=== PATIENT | male | born 1955 | race African-American/Black ===

== ENCOUNTER → 2016-10-23 | Outpatient (CLI) | payer BC ==
[2016-10-25 10:19] LABS: PROSTATE SPECIFIC ANTIGEN 1.6 ng/mL (0.0-4.0); PSA % FREE 13.8 % (.); PSA FREE 0.22 ng/mL
== END ==
LOC: OD 16:56
PROVIDERS: ATTEND Urology
DX: N40.1 Benign prostatic hyperplasia with lower urinary tract symptoms (principal); K27.9 Peptic ulcer, site unspecified, unspecified as acute or chronic, without hemorrhage or perforation
CPT/HCPCS: 36415; 84154

== ENCOUNTER 2017-01-06 11:53 | Emergency (ER) | payer OTHER, BC ==
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
[2017-01-06] MEDS ORDERED: IBUPROFEN 800 MG TABLET PO ONE (12:41)
[2017-01-06 14:13] VITALS: BP 140/82
== END 2017-01-06 14:07 | disposition home or self-care (01) ==
LOC: ER 11:53
DX: S13.4XXA Sprain of ligaments of cervical spine, initial encounter (principal); S29.019A Strain of muscle and tendon of unspecified wall of thorax, initial encounter; M54.9 Dorsalgia, unspecified; M54.2 Cervicalgia; V87.7XXA Person injured in collision between other specified motor vehicles (traffic), initial encounter
CPT/HCPCS: 71020; 72050; 72070; 99284

== ENCOUNTER → 2017-06-29 | Outpatient (CLI) | payer BC ==
[2017-06-29 16:12] LABS: ABSOLUTE LYMPHOCYTES (AUTO) 1.1 10^3/uL (0.5-4.7); ABSOLUTE MONOCYTES (AUTO) 0.6 10^3/uL (0.1-1.4); ABSOLUTE NEUT (AUTO) 4.6 10^3/uL (1.7-8.2); BASOPHILS % (AUTO) 0.3 % (0-2); EOSINOPHILS % (AUTO) 0.7 % (0-6); HEMATOCRIT 38.6 % (37.9-51.0); HEMOGLOBIN 13.1 g/dL (13.5-17.0); HGB HCT DIFFERENCE 0.7; LYMPHOCYTES % (AUTO) 17.5 % (13-45); MEAN CORPUSCULAR HEMOGLOBIN 27.9 pg (27.0-33.4); MEAN CORPUSCULAR VOLUME 82 fl (80-97); MONOCYTES % (AUTO) 10.1 % (3-13); RED BLOOD COUNT 4.71 10^6/uL (4.35-5.55); RED CELL DISTRIBUTION WIDTH 12.9 % (11.5-14.0); SEGMENTED NEUTROPHILS % (AUTO) 71.4 % (42-78); WHITE BLOOD COUNT 6.4 10^3/uL (4.0-10.5)
[2017-06-29 16:43] LABS: ALANINE AMINOTRANSFERASE 32 U/L (21-72); ALBUMIN 3.9 g/dL (3.5-5.0); ALKALINE PHOSPHATASE 77 U/L (38-126); ANION GAP 11 (5-19); ASPARTATE AMINO TRANSFERASE 32 U/L (17-59); BILIRUBIN,DIRECT 0.3 mg/dL (0.0-0.4); BILIRUBIN,TOTAL 0.7 mg/dL (0.2-1.3); BLOOD UREA NITROGEN 10 mg/dL (7-20); CALCIUM 9.8 mg/dL (8.4-10.2); CARBON DIOXIDE 26 mmol/L (22-30); CHLORIDE 104 mmol/L (98-107); CREATININE RESULT 0.96 mg/dL (0.52-1.25); GLUCOSE 147 mg/dL (75-110); POTASSIUM 3.6 mmol/L (3.6-5.0); SODIUM 141.3 mmol/L (137-145); TOTAL PROTEIN 7.2 g/dL (6.3-8.2)
== END ==
LOC: OD 15:36
PROVIDERS: ATTEND Internal Medicine Critical Care Medicine
DX: D86.0 Sarcoidosis of lung (principal); R59.0 Localized enlarged lymph nodes; R91.1 Solitary pulmonary nodule; R91.8 Other nonspecific abnormal finding of lung field; R06.09 Other forms of dyspnea
CPT/HCPCS: 36415; 80053; 85025

== ENCOUNTER → 2017-09-17 | Outpatient (CLI) | payer BC ==
[2017-09-17 12:06] LABS: ABSOLUTE BASOPHILS # (AUTO) 0.1 10^3/uL (0.0-0.2); ABSOLUTE EOSINOPHILS # (AUTO) 0.8 10^3/uL (0.0-0.6); ABSOLUTE LYMPHOCYTES (AUTO) 1.2 10^3/uL (0.5-4.7); ABSOLUTE MONOCYTES (AUTO) 0.9 10^3/uL (0.1-1.4); ABSOLUTE NEUT (AUTO) 3.3 10^3/uL (1.7-8.2); BASOPHILS % (AUTO) 0.8 % (0-2); EOSINOPHILS % (AUTO) 13.4 % (0-6); HEMATOCRIT 38.3 % (37.9-51.0); HEMOGLOBIN 12.8 g/dL (13.5-17.0); HGB HCT DIFFERENCE 0.1; LYMPHOCYTES % (AUTO) 19.1 % (13-45); MEAN CORPUSCULAR HEMOGLOBIN 28.1 pg (27.0-33.4); MEAN CORPUSCULAR HGB CONC 33.4 g/dL (32.0-36.0); MEAN CORPUSCULAR VOLUME 84 fl (80-97); MONOCYTES % (AUTO) 14.7 % (3-13); RED BLOOD COUNT 4.55 10^6/uL (4.35-5.55); RED CELL DISTRIBUTION WIDTH 13.2 % (11.5-14.0); WHITE BLOOD COUNT 6.3 10^3/uL (4.0-10.5)
[2017-09-17 12:33] LABS: ALANINE AMINOTRANSFERASE 47 U/L (21-72); ALBUMIN 3.8 g/dL (3.5-5.0); ALKALINE PHOSPHATASE 81 U/L (38-126); ANION GAP 11 (5-19); ASPARTATE AMINO TRANSFERASE 41 U/L (17-59); BILIRUBIN,DIRECT 0.2 mg/dL (0.0-0.4); BILIRUBIN,TOTAL 0.5 mg/dL (0.2-1.3); BLOOD UREA NITROGEN 7 mg/dL (7-20); CALCIUM 9.2 mg/dL (8.4-10.2); CARBON DIOXIDE 31 mmol/L (22-30); CHLORIDE 101 mmol/L (98-107); GLUCOSE 85 mg/dL (75-110); POTASSIUM 4.1 mmol/L (3.6-5.0); SODIUM 143.1 mmol/L (137-145); TOTAL PROTEIN 6.8 g/dL (6.3-8.2)
== END ==
LOC: OD 10:54
PROVIDERS: ATTEND Internal Medicine Critical Care Medicine
DX: R91.8 Other nonspecific abnormal finding of lung field (principal); R91.1 Solitary pulmonary nodule; J45.909 Unspecified asthma, uncomplicated; D86.0 Sarcoidosis of lung; J45.901 Unspecified asthma with (acute) exacerbation; R59.9 Enlarged lymph nodes, unspecified; R06.09 Other forms of dyspnea
CPT/HCPCS: 36415; 80053; 85025

== ENCOUNTER 2017-10-29 03:55 | Emergency (ER) | payer BC ==
[2017-10-29] MEDS ORDERED: IPRATROPIUM/ALBUTEROL 0.5-2.5 MG/3 ML AMPUL NEB ONE ×3 (04:28→06:58)
[2017-10-29] MEDS ORDERED: METHYLPREDNISOLONE INJ 125 MG/2 ML SDV IV ONE (04:44)
--- NOTE | 2017-10-29 04:48 | ER Document Report ---
Doctor's Note Notes: 10/29/17 04:46 I performed a quick triage evaluation of the patient. Mr. Mejia is a pleasant 62-year-old male with a history of sarcoidosis who presents with complaint of difficulty breathing and coughing. 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 He said he has had coughing since September 14. He has been on and off prednisone. He is currently on 10 mg of prednisone a day. He was recently placed on Levaquin. Since starting Levaquin he is felt nauseous and has been vomiting. No fevers. His breathing is gradually got worse now he has a lot of wheezing. He does not use breathing treatments at home. No other complaints at this time. On exam he does have diffuse wheezing and tightness in the lung gonzalez. He is not tachypneic. He is speaking in full sentences. Start breathing treatments as well as Solu-Medrol magnesium. I will obtain chest x-ray. Labs have been ordered.
[2017-10-29] MEDS: MAGNESIUM SULFATE/D5W 1 GM/100 ML RTUPB IV SCH ×2 (04:58→05:16)
--- NOTE | 2017-10-29 05:06 | RADIOLOGY REPORT (SQ) ---
EXAM DESCRIPTION: CHEST SINGLE VIEW CLINICAL HISTORY: History of sarcoidosis. COMPARISON: 01/06/2017 FINDINGS: Single frontal view of the chest. Tortuosity of thoracic aorta. Cardiac megaly. Leads overlie the chest. Upper lobe and perihilar opacities are unchanged. No pneumothorax or pleural effusion. No lobar consolidation, pneumothorax, or pleural effusion. No displaced rib fractures identified. Upper abdominal soft tissues are unremarkable. IMPRESSION: 1. Stable appearance of the chest with unchanged upper lobe and perihilar opacities likely representing adenopathy related to sarcoidosis. No acute pulmonary process.
[2017-10-29 05:18] LABS: ABSOLUTE EOSINOPHILS # (AUTO) 0.7 10^3/uL (0.0-0.6); ABSOLUTE LYMPHOCYTES (AUTO) 1.9 10^3/uL (0.5-4.7); ABSOLUTE MONOCYTES (AUTO) 0.8 10^3/uL (0.1-1.4); ABSOLUTE NEUT (AUTO) 3.4 10^3/uL (1.7-8.2); BASOPHILS % (AUTO) 0.7 % (0-2); EOSINOPHILS % (AUTO) 9.9 % (0-6); HEMOGLOBIN 12.5 g/dL (13.5-17.0); LYMPHOCYTES % (AUTO) 27.9 % (13-45); MEAN CORPUSCULAR HEMOGLOBIN 28.2 pg (27.0-33.4); MEAN CORPUSCULAR VOLUME 85 fl (80-97); MONOCYTES % (AUTO) 12.1 % (3-13); PLATELET COUNT 226 10^3/uL (150-450); RED BLOOD COUNT 4.45 10^6/uL (4.35-5.55); RED CELL DISTRIBUTION WIDTH 13.2 % (11.5-14.0); SEGMENTED NEUTROPHILS % (AUTO) 49.4 % (42-78); TOTAL CELLS COUNTED % (AUTO) 100 %; WHITE BLOOD COUNT 6.9 10^3/uL (4.0-10.5)
[2017-10-29 05:47] LABS: ALANINE AMINOTRANSFERASE 23 U/L (21-72); ALBUMIN 3.8 g/dL (3.5-5.0); ALKALINE PHOSPHATASE 66 U/L (38-126); ANION GAP 10 (5-19); ASPARTATE AMINO TRANSFERASE 20 U/L (17-59); BILIRUBIN,DIRECT 0.2 mg/dL (0.0-0.4); BILIRUBIN,TOTAL 0.2 mg/dL (0.2-1.3); BLOOD UREA NITROGEN 13 mg/dL (7-20); CARBON DIOXIDE 33 mmol/L (22-30); CHLORIDE 103 mmol/L (98-107); GLUCOSE 101 mg/dL (75-110); POTASSIUM 3.7 mmol/L (3.6-5.0); SODIUM 145.6 mmol/L (137-145); TOTAL PROTEIN 6.7 g/dL (6.3-8.2)
[2017-10-29 07:10] VITALS: BP 149/93
--- NOTE | 2017-10-29 07:11 | ER Document Report ---
ED General - General Chief Complaint: Shortness Of Breath Stated Complaint: VOMITING,WHEEZING Time Seen by Provider: 10/29/17 04:44 Mode of Arrival: Ambulatory Information source: Patient Notes: 62-year-old male history of sarcoidosis presents with complaints of wheezing shortness of breath. Patient notes that he has been wheezing for a while but it has worsened over the past week or so. He denies any productivity to cough denies any fevers or chills. Patient is on 10 mg of steroids daily. Patient is on levofloxacin from his host coordinator as well. TRAVEL OUTSIDE OF THE [place] IN LAST 30 DAYS: No - HPI Onset: Last week Onset/Duration: Worse Quality of pain: No pain Severity: Mild Pain Level: Denies Associated symptoms: Shortness of breath Exacerbated by: Coughing Relieved by: Denies Similar symptoms previously: Yes Recently seen / treated by doctor: Yes - Related Data Allergies/Adverse Reactions: No Known Allergies Allergy (Verified 10/29/17 04:36) Past Medical History - Social History Smoking Status: Never Smoker Cigarette use (# per day): No Chew tobacco use (# tins/day): No Smoking Education Provided: No Frequency of alcohol use: Occasional Drug Abuse: None Family History: Reviewed & Not Pertinent Patient has suicidal ideation: No Patient has homicidal ideation: No Renal/ Medical History: Denies: Hx Peritoneal Dialysis Review of Systems - Review of Systems Notes: REVIEW OF SYSTEMS: CONSTITUTIONAL : Denies fever, chills, or sweats. Denies recent illness. EENT: Denies eye, ear, throat, or mouth pain or symptoms. Denies nasal or sinus congestion or discharge. Denies throat, tongue, or mouth swelling or difficulty swallowing. CARDIOVASCULAR: Denies chest pain. Denies palpitations or racing or irregular heart beat. Denies ankle edema. RESPIRATORY: Admits to wheezing shortness of breath GASTROINTESTINAL: Denies abdominal pain or distention. Denies nausea, vomiting , or diarrhea. Denies blood in vomitus, stools, or per rectum. Denies black, tarry stools. Denies constipation. GENITOURINARY: Denies difficulty urinating, painful urination, burning, frequency, blood in urine, or discharge. MUSCULOSKELETAL: Denies back or neck pain or stiffness. Denies joint pain or swelling. SKIN: Denies rash, lesions or sores. HEMATOLOGIC : Denies easy bruising or bleeding. LYMPHATIC: Denies swollen, enlarged glands. NEUROLOGICAL: Denies confusion or altered mental status. Denies passing out or loss of consciousness. Denies dizziness or lightheadedness. Denies headache. Denies weakness or paralysis or loss of use of either side. Denies problems with gait or speech. Denies sensory loss, numbness, or tingling. Denies seizures. PSYCHIATRIC: Denies anxiety or stress. Denies depression, suicidal ideation, or homicidal ideation. ALL OTHER SYSTEMS REVIEWED AND NEGATIVE. Dictation was performed using [employer] voice recognition software PHYSICAL EXAMINATION: GENERAL: Well-appearing, well-nourished and in no acute distress. HEAD: Atraumatic, normocephalic. EYES: Pupils equal round and reactive to light, extraocular movements intact, sclera anicteric, conjunctiva are normal. ENT: Nares patent, oropharynx clear without exudates. Moist mucous membranes. NECK: Normal range of motion, supple without lymphadenopathy LUNGS: Coarse inspiratory expiratory wheezing with no respiratory distress noted to have improved by nurse prior to my evaluation HEART: Regular rate and rhythm without murmurs ABDOMEN: Soft, nontender, nondistended abdomen. No guarding, no rebound. No masses appreciated. Musculoskeletal: Normal range of motion, no pitting or edema. No cyanosis. NEUROLOGICAL: Cranial nerves grossly intact. Normal speech, normal gait. Normal sensory, motor exams PSYCH: Normal mood, normal affect. SKIN: Warm, Dry, normal turgor, no rashes or lesions noted. Physical Exam - Vital signs Vitals: Pulse Ox 93 10/29/17 04:18 Course - Re-evaluation Re-evalutation: 10/29/17 07:09 Patient already received 2 DuoNeb states he feels much better, he is satting 97 % on room air, I will add another DuoNeb and increase his steroids from 10 mg to 60 mg 5 days. Patient been instructed to follow-up with the host coordinator. Patient will be discharged home with nebulizer prescription and albuterol at his request Lab work imaging otherwise are quite benign patient looks well stable for discharge After performing a Medical Screening Examination, I estimate there is LOW risk for ACUTE CORONARY SYNDROME, PULMONARY EMBOLI, RESPIRATORY FAILURE, SEPSIS OR MENINGITIS, thus I consider the discharge disposition reasonable. I have reevaluated this patient multiple times and no significant life threatening changes are noted. The patient and I have discussed the diagnosis and risks, and we agree with discharging home with close follow-up. We also discussed returning to the Emergency Department immediately if new or worsening symptoms occur. We have discussed the symptoms which are most concerning (e.g., changing or worsening pain, trouble swallowing or breathing, neck stiffness, fever) that necessitate immediate return. - Vital Signs Vital signs: Temp Pulse Resp BP Pulse Ox 14 141/82 H 95 10/29/17 06:01 10/29/17 06:01 10/29/17 06:01 - Laboratory Result Diagrams: 10/29/17 05:00 10/29/17 05:00 Laboratory results interpreted by me: 10/29/17 10/29/17 05:00 05:00 Hgb 12.5 L Eosinophils % 9.9 H Absolute Eosinophils 0.7 H Sodium 145.6 H Carbon Dioxide 33 H - Diagnostic Test Radiology reviewed: Image reviewed, Reports reviewed Discharge - Discharge Clinical Impression: Sarcoidosis Condition: Stable Disposition: HOME, SELF-CARE Instructions: Bronchitis With Bronchospasm (Wheezing) (REPLACED BY [facility]) Prescriptions: Albuterol Sulfate [Albuterol Sulfate 2.5mg/3 mL] 1 vial IH Q4 PRN #30 vial PRN Reason: Nebulizer [Nebulizer Machine] 1 each MC ASDIR PRN #1 kit PRN Reason: Prednisone [Deltasone 20 mg Tablet] 3 tab PO DAILY 4 Days tablet Referrals: LE SALINAS MD [Primary Care Provider] - Follow up tomorrow
== END 2017-10-29 07:36 | disposition home or self-care (01) ==
LOC: ER 03:55
DX: D86.9 Sarcoidosis, unspecified (principal); R06.02 Shortness of breath; R11.10 Vomiting, unspecified; R06.2 Wheezing; Z79.899 Other long term (current) drug therapy
CPT/HCPCS: 94640 ×2; 99285; 96375; 96365; 36415; 85025; 80053; 71045; J2930; J3475; J7620

== ENCOUNTER → 2018-01-20 | Outpatient (CLI) | payer BC ==
--- NOTE | 2018-01-20 16:34 | RADIOLOGY REPORT (SQ) ---
EXAM DESCRIPTION: CT CHEST WITHOUT COMPLETED DATE/TIME: 01/20/2018 2:38 pm REASON FOR STUDY: PULMONARY INFILTRATE R91.8 OTHER NONSPECIFIC ABNORMAL FINDING OF LUNG FIELD R91.1 SOLITARY PULMONARY NODULE R59.9 ENLARGED LYMPH NODES, UNSPECIFIED COMPARISON: Chest x-ray dated October [address] scan dated April 2014 TECHNIQUE: CT scan performed of the chest without intravenous contrast. Images reviewed with lung, soft tissue and bone windows. Reconstructed coronal and sagittal MPR images reviewed. All images st ored on PACS. All CT scanners at this facility use dose modulation, iterative reconstruction, and/or weight based d osing when appropriate to reduce radiation dose to as low as reasonably achievable (ALARA). [facility]: Dose Right [facility]: CareDose [facility]: Dose Right [facility]: Teradose 4D [facility]: Smart myJambi RADIATION DOSE: CT Rad equipment meets quality standard of care and radiation dose reduction techniq ues were employed. CTDIvol: 12.4 mGy. DLP: 515 mGy-cm. mGy. LIMITATIONS: No technical limitations. FINDINGS: LUNGS AND PLEURA: The previously described varying size multiple nodular pulmonary masses some of which contains calcifications are again identified and appear essentially unchanged no acute consolidations or pleural effusions are identified. HILAR AND MEDIASTINAL STRUCTURES: The previously described extensive mediastinal and hilar calcific a nd noncalcific adenopathy a appears stable. HEART AND VASCULAR STRUCTURES: No aneurysm. No pericardial effusion. UPPER ABDOMEN: No significant findings. Limited exam. THYROID AND OTHER SOFT TISSUES: No masses. No adenopathy. BONES: No significant finding. HARDWARE: None in the chest. OTHER: No other significant findings. IMPRESSION: No significant interval changes compared to the previous CT scan. Extensive mediastinal and hilar calcific and noncalcific adenopathy appears stable. The previously described varying size multiple nodular or pulmonary masses some of which contains calcifications appears stable. The appe arance is consistent with the patient's clinical history of sarcoidosis. No acute changes. Other fi ndings as noted above TECHNICAL DOCUMENTATION: JOB ID: [id number] Quality ID # [id number]: Final reports with documentation of one or more dose reduction techniques (e.g., Au tomated exposure control, adjustment of the mA and/or kV according to patient size, use of iterative reconstruction technique) 2010 [employer]- All Rights Reserved Reading location - IP/workstation name: [email or web address]
== END ==
LOC: RAD 14:17
PROVIDERS: ATTEND Internal Medicine Critical Care Medicine
DX: D86.0 Sarcoidosis of lung (principal); R59.9 Enlarged lymph nodes, unspecified; R91.8 Other nonspecific abnormal finding of lung field; R91.1 Solitary pulmonary nodule; R06.09 Other forms of dyspnea; R06.89 Other abnormalities of breathing; J45.901 Unspecified asthma with (acute) exacerbation
CPT/HCPCS: 71250

== ENCOUNTER 2018-04-09 18:56 | Inpatient (IN) | payer BC ==
[2018-04-09] MEDS ORDERED: METHYLPREDNISOLONE INJ 125 MG/2 ML SDV IV ONE (19:35)
[2018-04-09] MEDS ORDERED: IPRATROPIUM/ALBUTEROL 0.5-2.5 MG/3 ML AMPUL NEB ONE (19:35)
--- NOTE | 2018-04-09 19:48 | ER Document Report ---
ED General - General Chief Complaint: Breathing Difficulty Stated Complaint: TROUBLE BREATHING Time Seen by Provider: 04/09/18 19:22 Mode of Arrival: Ambulatory Information source: Patient Notes: 62-year-old male presents with complaints of shortness of breath wheezing over the past few months has worsened today. Patient denies any fevers or chills admits to intermittent productive cough. Patient notes he has been given breathing treatments at home TRAVEL OUTSIDE OF THE [place] IN LAST 30 DAYS: No - HPI Onset: Other Onset/Duration: Persistent Quality of pain: Achy Severity: Moderate Pain Level: 1 Associated symptoms: Nonproductive cough, Productive cough, Shortness of breath Exacerbated by: Movement, Walking Relieved by: Denies Similar symptoms previously: Yes Recently seen / treated by doctor: Yes - Related Data Allergies/Adverse Reactions: No Known Allergies Allergy (Verified 10/29/17 04:36) Past Medical History - Social History Smoking Status: Never Smoker Cigarette use (# per day): No Chew tobacco use (# tins/day): No Smoking Education Provided: No Family History: Reviewed & Not Pertinent Renal/ Medical History: Denies: Hx Peritoneal Dialysis Review of Systems - Review of Systems Notes: REVIEW OF SYSTEMS: CONSTITUTIONAL : Denies fever, chills, or sweats. Denies recent illness. EENT: Denies eye, ear, throat, or mouth pain or symptoms. Denies nasal or sinus congestion or discharge. Denies throat, tongue, or mouth swelling or difficulty swallowing. CARDIOVASCULAR: Denies chest pain. Denies palpitations or racing or irregular heart beat. Denies ankle edema. RESPIRATORY: Admits to wheezing shortness of breath GASTROINTESTINAL: Denies abdominal pain or distention. Denies nausea, vomiting , or diarrhea. Denies blood in vomitus, stools, or per rectum. Denies black, tarry stools. Denies constipation. GENITOURINARY: Denies difficulty urinating, painful urination, burning, frequency, blood in urine, or discharge. MUSCULOSKELETAL: Denies back or neck pain or stiffness. Denies joint pain or swelling. SKIN: Denies rash, lesions or sores. HEMATOLOGIC : Denies easy bruising or bleeding. LYMPHATIC: Denies swollen, enlarged glands. NEUROLOGICAL: Denies confusion or altered mental status. Denies passing out or loss of consciousness. Denies dizziness or lightheadedness. Denies headache. Denies weakness or paralysis or loss of use of either side. Denies problems with gait or speech. Denies sensory loss, numbness, or tingling. Denies seizures. PSYCHIATRIC: Denies anxiety or stress. Denies depression, suicidal ideation, or homicidal ideation. ALL OTHER SYSTEMS REVIEWED AND NEGATIVE. Dictation was performed using [employer] voice recognition software PHYSICAL EXAMINATION: GENERAL: Well-appearing, well-nourished and in moderate respiratory acute distress. HEAD: Atraumatic, normocephalic. EYES: Pupils equal round and reactive to light, extraocular movements intact, sclera anicteric, conjunctiva are normal. ENT: Nares patent, oropharynx clear without exudates. Moist mucous membranes. NECK: Normal range of motion, supple without lymphadenopathy LUNGS: Audible inspiratory respiratory wheezing all throughout with intercostal supraclavicular retractions HEART: Regular rate and rhythm without murmurs ABDOMEN: Soft, nontender, nondistended abdomen. No guarding, no rebound. No masses appreciated. Musculoskeletal: Normal range of motion, no pitting or edema. No cyanosis. NEUROLOGICAL: Cranial nerves grossly intact. Normal speech, normal gait. Normal sensory, motor exams PSYCH: Normal mood, normal affect. SKIN: Warm, Dry, normal turgor, no rashes or lesions noted. Physical Exam - Vital signs Vitals: Pulse Ox 99 04/09/18 19:50 Course - Re-evaluation Re-evalutation: 04/09/18 19:48 Patient will be given multiple breathing treatments dyspnea workup pending 04/09/18 21:51 After 3 duo nebs patient will be ambulated to determine his exertional dyspnea 04/09/18 22:28 Patient was ambulated immediately desatted to 83%, I will admit him to the hospitalist service preparer is Dr. pineda - Vital Signs Vital signs: Temp Pulse Resp BP Pulse Ox 99 04/09/18 19:50 - Laboratory Result Diagrams: 04/09/18 19:44 04/09/18 19:44 Laboratory results interpreted by me: 04/09/18 04/09/18 04/09/18 19:44 19:44 23:03 Hgb 12.9 L Eosinophils % 11.9 H Absolute Eosinophils 1.0 H VBG pCO2 68.6 H* VBG HCO3 34.6 H Carbon Dioxide 33 H Discharge - Discharge Clinical Impression: Sarcoidosis, Hypoxemia Condition: Fair Disposition: ADMITTED INPATIENT Admitting Provider: Hospitalist Unit Admitted: Telemetry
[2018-04-09] MEDS ORDERED: IBUPROFEN 800 MG TABLET PO ONE (20:07)
[2018-04-09 20:13] LABS: ABSOLUTE BASOPHILS # (AUTO) 0.1 10^3/uL (0.0-0.2); ABSOLUTE LYMPHOCYTES (AUTO) 1.5 10^3/uL (0.5-4.7); ABSOLUTE MONOCYTES (AUTO) 0.9 10^3/uL (0.1-1.4); BASOPHILS % (AUTO) 0.7 % (0-2); EOSINOPHILS % (AUTO) 11.9 % (0-6); HEMATOCRIT 38.6 % (37.9-51.0); HEMOGLOBIN 12.9 g/dL (13.5-17.0); LYMPHOCYTES % (AUTO) 17.9 % (13-45); MEAN CORPUSCULAR HGB CONC 33.3 g/dL (32.0-36.0); MEAN CORPUSCULAR VOLUME 84 fl (80-97); PLATELET COUNT 202 10^3/uL (150-450); RED BLOOD COUNT 4.59 10^6/uL (4.35-5.55); RED CELL DISTRIBUTION WIDTH 13.3 % (11.5-14.0); SEGMENTED NEUTROPHILS % (AUTO) 58.5 % (42-78); TOTAL CELLS COUNTED % (AUTO) 100 %; WHITE BLOOD COUNT 8.5 10^3/uL (4.0-10.5)
[2018-04-09 20:30] LABS: ALANINE AMINOTRANSFERASE 31 U/L (21-72); ALBUMIN 3.9 g/dL (3.5-5.0); ALKALINE PHOSPHATASE 82 U/L (38-126); ANION GAP 8 (5-19); ASPARTATE AMINO TRANSFERASE 30 U/L (17-59); BILIRUBIN,DIRECT 0.3 mg/dL (0.0-0.4); BILIRUBIN,TOTAL 0.5 mg/dL (0.2-1.3); BLOOD UREA NITROGEN 10 mg/dL (7-20); CALCIUM 9.3 mg/dL (8.4-10.2); CARBON DIOXIDE 33 mmol/L (22-30); CHLORIDE 103 mmol/L (98-107); CREATINE KINASE 141 U/L (55-170); GLUCOSE 92 mg/dL (75-110); POTASSIUM 3.9 mmol/L (3.6-5.0); SODIUM 144.1 mmol/L (137-145); TOTAL PROTEIN 7.4 g/dL (6.3-8.2)
[2018-04-09 20:42] LABS: NT PRO BNP 46 pg/mL (5-900)
[2018-04-09 20:44] LABS: TROPONIN I < 0.012 ng/mL
--- NOTE | 2018-04-09 20:47 | RADIOLOGY REPORT (SQ) ---
EXAM DESCRIPTION: CHEST SINGLE VIEW COMPLETED DATE/TIME: 04/09/2018 8:28 pm REASON FOR STUDY: dyspnea COMPARISON: 10/29/2017 EXAM PARAMETERS: NUMBER OF VIEWS: One view. TECHNIQUE: Single frontal radiographic view of the chest acquired. RADIATION DOSE: NA LIMITATIONS: None. FINDINGS: LUNGS AND PLEURA: No acute opacities, similar parahilar and upper lobe opacities. No pneu mothorax. No pleural effusion. MEDIASTINUM AND HILAR STRUCTURES: Stable. HEART AND VASCULAR STRUCTURES: Stable. BONES: No acute findings. HARDWARE: None in the chest. OTHER: No other significant finding. IMPRESSION: Stable radiograph compared with October 2017. TECHNICAL DOCUMENTATION: JOB ID: [id number] [place]-72 2010 [employer]- All Rights Reserved Reading location - IP/workstation name: [email or web address]
[2018-04-09] MEDS ORDERED: ACETAMINOPHEN 325 MG TABLET PO PRN (22:41)
[2018-04-09] MEDS ORDERED: IPRATROPIUM/ALBUTEROL 0.5-2.5 MG/3 ML AMPUL NEB PRN (22:41)
[2018-04-09] MEDS ORDERED: GUAIFENESIN SYRP 200 MG/10 ML UDC PO PRN (22:41)
[2018-04-09] MEDS ORDERED: CHLORPHENIRAMINE MALEATE 4 MG TABLET PO ONE (22:44)
[2018-04-09] MEDS ORDERED: FLUTICASONE NASAL SPRAY 50 MCG/SPRY 120 SPRAY/16 GM NASL ONE (23:00)
[2018-04-09] MEDS ORDERED: PREDNISONE 20 MG TABLET PO ONE (23:00)
[2018-04-09 23:16] LABS: VENOUS BLOOD BASE EXCESS 6.1 mmol/L; VENOUS BLOOD HCO3 34.6 mmol/L (20-32); VENOUS BLOOD PH 7.32 (7.30-7.42)
[2018-04-09 23:20] LABS: VENOUS BLOOD PCO2 68.6 mmHg (35-63)
[2018-04-10] MEDS ORDERED: LANSOPRAZOLE 30 MG TAB.RAP.DR PO ONE (01:31)
[2018-04-10] MEDS: IPRATROPIUM/ALBUTEROL 0.5-2.5 MG/3 ML AMPUL NEB SCH ×4 (02:48→20:23)
[2018-04-10] MEDS: LANSOPRAZOLE 30 MG TAB.RAP.DR PO SCH ×2 (05:42→16:42)
[2018-04-10] MEDS: HEPARIN SOD (PORCINE) 5,000 UNIT/ML 1 ML SYRINGE SUBCUT SCH ×3 (05:42→21:52)
--- NOTE | 2018-04-10 06:29 | PDOC H&P ---
History of Present Illness Admission Date/PCP: 04/09/18 23:17 EL SALINAS MD Patient complains of: Shortness of breath History of Present Illness: KELI PEREZ is a 62 year old male with a past medical history of pulmonary sarcoidosis followed at [place]. Patient has had several weeks of worsening wheeze and shortness of breath undergoing ENT evaluation at [place] last week without new findings. In the emergency room he has marketed wheeze nonproductive cough. Denies chest pain, clear sputum, rhinorrhea, sore throat and uncontrolled GERD. He notes exacerbations occurring more frequently when lying down. He receives IV Solu-Medrol, albuterol with Atrovent and supplemental oxygen. He has an unremarkable cardiac workup with a BNP of 26. He is referred to the hospitalist for admission Past Medical History Pulmonary Medical History: Reports: Bronchitis, Other - Pulmonary sarcoidosis Past Surgical History Past Surgical History: Reports: Orthopedic Surgery - knee Social History Information Source: Patient Smoking Status: Never Smoker Frequency of Alcohol Use: Occasional Drugs: None - Advance Directive Resuscitation Status: Full Code Family History Family History: Hypertension Parental Family History Reviewed: Yes Children Family History Reviewed: Yes Sibling(s) Family History Reviewed.: Yes Medication/Allergy Home Medications: Albuterol Sulfate [Albuterol Sulfate 2.5mg/3 mL] 1 vial IH BID 04/10/18 Hydroxychloroquine Sulfate 200 mg PO DAILY 04/10/18 Montelukast Sodium 20 mg PO DAILY 04/10/18 Nebulizer [Nebulizer Machine] 1 each MC BID 04/10/18 Prednisone 10 mg PO DAILY 04/10/18 Allergies/Adverse Reactions: No Known Allergies Allergy (Verified 10/29/17 04:36) Review of Systems Constitutional: ABSENT: chills, fever(s), headache(s), weight gain, weight loss Eyes: ABSENT: visual disturbances Ears: ABSENT: hearing changes Cardiovascular: ABSENT: chest pain, dyspnea on exertion, edema, orthropnea, palpitations Respiratory: ABSENT: cough, hemoptysis Gastrointestinal: ABSENT: abdominal pain, constipation, diarrhea, hematemesis, hematochezia, nausea, vomiting Genitourinary: ABSENT: dysuria, hematuria Musculoskeletal: ABSENT: joint swelling Integumentary: ABSENT: rash, wounds Neurological: ABSENT: abnormal gait, abnormal speech, confusion, dizziness, focal weakness, syncope Psychiatric: ABSENT: anxiety, depression, homidical ideation, suicidal ideation Endocrine: ABSENT: cold intolerance, heat intolerance, polydipsia, polyuria Hematologic/Lymphatic: ABSENT: easy bleeding, easy bruising Physical Exam Vital Signs: Temp Pulse Resp BP Pulse Ox 97.7 F 90 16 140/75 H 100 04/10/18 04:07 04/10/18 04:07 04/10/18 04:07 04/10/18 04:07 04/10/18 04:07 Intake & Output 04/08/18 04/09/18 04/10/18 11:59 11:59 11:59 Intake Total 5 Balance 5 Weight 83.6 kg General appearance: PRESENT: cooperative, mild distress. ABSENT: disheveled Head exam: PRESENT: atraumatic, normocephalic Eye exam: PRESENT: conjunctiva pink, EOMI, PERRLA. ABSENT: scleral icterus Ear exam: PRESENT: normal external ear exam Mouth exam: PRESENT: moist, tongue midline Neck exam: ABSENT: carotid bruit, JVD, lymphadenopathy, thyromegaly Respiratory exam: PRESENT: accessory muscle use, crackles, prolonged expiratory phas, symmetrical, tachypnea, wheezes Cardiovascular exam: PRESENT: RRR. ABSENT: diastolic murmur, rubs, systolic murmur Pulses: PRESENT: normal dorsalis pedis pul Vascular exam: PRESENT: normal capillary refill GI/Abdominal exam: PRESENT: normal bowel sounds, soft. ABSENT: distended, guarding, mass, organolmegaly, rebound, tenderness Rectal exam: PRESENT: deferred Extremities exam: PRESENT: full ROM. ABSENT: calf tenderness, clubbing, pedal edema Neurological exam: PRESENT: alert, awake, oriented to person, oriented to place , oriented to time, oriented to situation, CN II-XII grossly intact. ABSENT: motor sensory deficit Psychiatric exam: PRESENT: appropriate affect, normal mood. ABSENT: homicidal ideation, suicidal ideation Skin exam: PRESENT: dry, intact, warm. ABSENT: cyanosis, rash Results Impressions: Chest X-Ray 04/09/18 19:31 IMPRESSION: Stable radiograph compared with October 2017. Assessment & Plan - Diagnosis (1) Sarcoidosis Is this a current diagnosis for this admission?: Yes Plan: Pulmonary sarcoidosis, optimize steroids twice daily. Supplemental oxygen (2) Hypoxemia Is this a current diagnosis for this admission?: Yes Plan: Pulmonary sarcoidosis complicated by suspected subclinical GERD with bronchitis or pneumonitis. Supplemental oxygen, proton pump inhibitor and empiric antibiotic. (3) GERD (gastroesophageal reflux disease) Is this a current diagnosis for this admission?: Yes Plan: Proton pump inhibitor, education (4) Bronchitis Is this a current diagnosis for this admission?: Yes Plan: Empiric antibiotic, albuterol and Atrovent, - Time Time Spent: 30 to 50 Minutes - Inpatient Certification Medical Necessity: Need Close Monitoring Due to Risk of Patient Decompensation
[2018-04-10 06:45] LABS: ABSOLUTE LYMPHOCYTES (AUTO) 0.5 10^3/uL (0.5-4.7); ABSOLUTE MONOCYTES (AUTO) 0.1 10^3/uL (0.1-1.4); ABSOLUTE NEUT (AUTO) 5.5 10^3/uL (1.7-8.2); BASOPHILS % (AUTO) 0.2 % (0-2); EOSINOPHILS % (AUTO) 0.3 % (0-6); HEMATOCRIT 38.3 % (37.9-51.0); HEMOGLOBIN 12.7 g/dL (13.5-17.0); LYMPHOCYTES % (AUTO) 7.9 % (13-45); MEAN CORPUSCULAR HEMOGLOBIN 27.9 pg (27.0-33.4); MEAN CORPUSCULAR HGB CONC 33.2 g/dL (32.0-36.0); MEAN CORPUSCULAR VOLUME 84 fl (80-97); MONOCYTES % (AUTO) 1.5 % (3-13); PLATELET COUNT 197 10^3/uL (150-450); RED BLOOD COUNT 4.55 10^6/uL (4.35-5.55); SEGMENTED NEUTROPHILS % (AUTO) 90.1 % (42-78); TOTAL CELLS COUNTED % (AUTO) 100 %; WHITE BLOOD COUNT 6.1 10^3/uL (4.0-10.5)
[2018-04-10 07:04] LABS: ANION GAP 13 (5-19); BLOOD UREA NITROGEN 12 mg/dL (7-20); CALCIUM 9.4 mg/dL (8.4-10.2); CARBON DIOXIDE 28 mmol/L (22-30); CHLORIDE 102 mmol/L (98-107); GLUCOSE 229 mg/dL (75-110); POTASSIUM 4.1 mmol/L (3.6-5.0); SODIUM 142.5 mmol/L (137-145)
[2018-04-10] MEDS: PREDNISONE 20 MG TABLET PO SCH ×2 (09:20→17:08)
[2018-04-10 09:49] LABS: APPEARANCE,URINE CLEAR; BILIRUBIN,URINE NEGATIVE (NEGATIVE); COLOR,URINE YELLOW; GLUCOSE, URINE >=500 mg/dL (NEGATIVE); KETONES,URINE NEGATIVE (NEGATIVE); LEUKOCYTE ESTERASE,URINE NEGATIVE (NEGATIVE); NITRITE,URINE NEGATIVE (NEGATIVE); PROTEIN,URINE NEGATIVE (NEGATIVE); UROBILINOGEN,URINE NEGATIVE mg/dL (<2.0)
[2018-04-10] MEDS ORDERED: LEVOFLOXACIN 750 MG/D5W RTU 750 MG/150 ML RTUPB IV SCH (10:00)
[2018-04-10] MEDS: FLUTICASONE NASAL SPRAY 50 MCG/SPRY 120 SPRAY/16 GM NASL SCH ×2 (10:01→21:52)
[2018-04-10 10:03] LABS: URINE AMPHETAMINES SCREEN NEGATIVE; URINE BARBITURATES SCREEN NEGATIVE; URINE BENZODIAZEPINES SCREEN NEGATIVE; URINE COCAINE SCREEN NEGATIVE; URINE MARIJUANA (THC) SCREEN NEGATIVE; URINE METHADONE SCREEN NEGATIVE; URINE PHENCYCLIDINE SCREEN NEGATIVE
--- NOTE | 2018-04-10 10:34 | EKG REPORT ---
SEVERITY:- BORDERLINE ECG - SINUS TACHYCARDIA ATRIAL PREMATURE COMPLEX PROBABLE LEFT ATRIAL ABNORMALITY : Confirmed by: Ab Bishop MD 10-Apr-2018 10:33:19
[2018-04-10] MEDS: HYDROXYCHLOROQUINE SULFATE 200 MG TABLET PO SCH (10:36)
[2018-04-10] MEDS: MONTELUKAST SODIUM 10 MG TABLET PO SCH (10:36)
--- NOTE | 2018-04-10 17:58 | PDOC PROGRESS REPORT ---
Subjective Progress Note for:: 04/10/18 Subjective:: The patient is a 62-year-old male with past medical history of pulmonary sarcoidosis followed at [place], GERD, and hypertension who was admitted overnight 04/09/18 for increased dyspnea and orthopnea. Patient is seen on morning rounds with family member present. He is found sitting up to the bedside chair on supplemental oxygen at 2 L/min; patient is not home O2 dependent. He reports that he feels that his dyspnea and orthopnea have improved overnight. He asks about timing for discharge home; indicating that he is hopeful for discharge later on this afternoon or first thing tomorrow. He denies fever, chills, chest pain, palpitations, cough, abdominal pain, nausea , vomiting, and diarrhea. He has no other questions or concerns at this time. Reason For Visit: SARCOID FLAIR, BRONCHITIS Physical Exam Vital Signs: Temp Pulse Resp BP Pulse Ox 97.9 F 99 16 130/70 H 98 04/10/18 12:42 04/10/18 14:00 04/10/18 13:24 04/10/18 12:42 04/10/18 13:24 Intake & Output 04/09/18 04/10/18 04/11/18 06:59 06:59 06:59 Intake Total 5 118 Output Total 520 Balance 5 -402 Weight 83.6 kg General appearance: PRESENT: no acute distress, well-developed, well-nourished, other - Overweight Head exam: PRESENT: atraumatic, normocephalic Eye exam: PRESENT: conjunctiva pink, EOMI, PERRLA. ABSENT: scleral icterus Ear exam: PRESENT: normal external ear exam Mouth exam: PRESENT: moist, tongue midline Neck exam: ABSENT: carotid bruit, JVD, lymphadenopathy, thyromegaly Respiratory exam: PRESENT: prolonged expiratory phas, rhonchi - Occasional; improved following cough, symmetrical, unlabored, other - Supplemental oxygen at 2 L/min. ABSENT: rales, wheezes Cardiovascular exam: PRESENT: RRR, +S1, +S2. ABSENT: diastolic murmur, rubs, systolic murmur Pulses: PRESENT: normal dorsalis pedis pul Vascular exam: PRESENT: normal capillary refill GI/Abdominal exam: PRESENT: normal bowel sounds, soft. ABSENT: distended, guarding, mass, organolmegaly, rebound, tenderness Rectal exam: PRESENT: deferred Extremities exam: PRESENT: full ROM. ABSENT: calf tenderness, clubbing, pedal edema Neurological exam: PRESENT: alert, awake, oriented to person, oriented to place , oriented to time, oriented to situation, CN II-XII grossly intact. ABSENT: motor sensory deficit Psychiatric exam: PRESENT: appropriate affect, normal mood. ABSENT: homicidal ideation, suicidal ideation Skin exam: PRESENT: dry, intact, warm. ABSENT: cyanosis, rash Results Laboratory Results: 04/10/18 06:11 04/10/18 06:11 04/10/18 04/10/18 04/10/18 06:11 06:11 09:35 WBC 6.1 RBC 4.55 Hgb 12.7 L Hct 38.3 MCV 84 MCH 27.9 MCHC 33.2 RDW 13.0 Plt Count 197 Seg Neutrophils % 90.1 H Lymphocytes % 7.9 L Monocytes % 1.5 L Eosinophils % 0.3 Basophils % 0.2 Absolute Neutrophils 5.5 Absolute Lymphocytes 0.5 Absolute Monocytes 0.1 Absolute Eosinophils 0.0 Absolute Basophils 0.0 Sodium 142.5 Potassium 4.1 Chloride 102 Carbon Dioxide 28 Anion Gap 13 BUN 12 Creatinine 0.86 Est GFR ( Amer) > 60 Est GFR (Non-Af Amer) > 60 Glucose 229 H Calcium 9.4 Urine Color YELLOW Urine Appearance CLEAR Urine pH 5.0 Ur Specific [place] 1.010 Urine Protein NEGATIVE Urine Glucose (UA) >=500 H Urine Ketones NEGATIVE Urine Blood NEGATIVE Urine Nitrite NEGATIVE Ur Leukocyte Esterase NEGATIVE Urine WBC (Auto) 0 Impressions: Chest X-Ray 04/09/18 19:31 IMPRESSION: Stable radiograph compared with October 2017. Assessment & Plan - Diagnosis (1) Sarcoidosis Is this a current diagnosis for this admission?: Yes Plan: Patient with history of pulmonary sarcoidosis who is chronically on prednisone 10 mg and Plaquenil therapy. He is admitted to the medical floor on continuous cardiac telemetry. Is provided supplemental oxygen as needed to maintain oxygen saturations greater than 88%. He is provided increased steroid dose; prednisone 20 mg twice daily. His home dose Plaquenil is continued. (2) Bronchitis Is this a current diagnosis for this admission?: Yes Plan: Patient with increased dyspnea, wheezing, and hypoxia. She is afebrile, WBCs normal, and stable chest xray. Blood cultures are pending. The patient is placed empirically on Levaquin; will transition to p.o. He is provided scheduled and as needed nebulizer treatments. Incentive spirometry to bedside; encourage mobility. Supplemental oxygen as needed. (3) GERD (gastroesophageal reflux disease) Is this a current diagnosis for this admission?: Yes Plan: The patient is placed on proton pump inhibitor. He is educated with regard to low tobacco and caffeine intake; avoiding meals medially prior to bed. (4) Hypoxemia Is this a current diagnosis for this admission?: Yes Plan: Follow-up in office for pulmonary sarcoidosis complicated by GERD resulting in bronchitis or pneumonitis. He is placed on supplemental oxygen as needed, proton pump inhibitor is initiated, empiric antibiotics for coverage of bronchitis, and increased steroid dosing. Doing well presently; requested nursing attempt to wean oxygen. (5) HTN (hypertension) Qualifiers: Hypertension type: essential hypertension Qualified Code(s): I10 - Essential (primary) hypertension Is this a current diagnosis for this admission?: Yes Plan: Blood pressures were elevated to 161/85 at time of admission. Have trended down to 130/70 without antihypertensives. Elevated blood pressures may have been related to acute respiratory distress. Cardiac diet. We will continue to monitor. Consider initiation of ARB if persistently elevated. - Time Time Spent with patient: 15-24 minutes Medications reviewed and adjusted accordingly: Yes Anticipated discharge: Home Within: within 24 hours
[2018-04-11] MEDS: IPRATROPIUM/ALBUTEROL 0.5-2.5 MG/3 ML AMPUL NEB SCH ×2 (02:30→07:55)
[2018-04-11] MEDS: HEPARIN SOD (PORCINE) 5,000 UNIT/ML 1 ML SYRINGE SUBCUT SCH (06:38)
[2018-04-11] MEDS: LANSOPRAZOLE 30 MG TAB.RAP.DR PO SCH (06:38)
[2018-04-11 06:56] LABS: ABSOLUTE LYMPHOCYTES (AUTO) 1.2 10^3/uL (0.5-4.7); ABSOLUTE MONOCYTES (AUTO) 1.2 10^3/uL (0.1-1.4); ABSOLUTE NEUT (AUTO) 13.9 10^3/uL (1.7-8.2); BASOPHILS % (AUTO) 0.1 % (0-2); EOSINOPHILS % (AUTO) 0.2 % (0-6); HEMATOCRIT 37.2 % (37.9-51.0); HEMOGLOBIN 12.3 g/dL (13.5-17.0); LYMPHOCYTES % (AUTO) 7.2 % (13-45); MEAN CORPUSCULAR HEMOGLOBIN 27.8 pg (27.0-33.4); MEAN CORPUSCULAR HGB CONC 33.2 g/dL (32.0-36.0); MEAN CORPUSCULAR VOLUME 84 fl (80-97); MONOCYTES % (AUTO) 7.5 % (3-13); PLATELET COUNT 202 10^3/uL (150-450); RED BLOOD COUNT 4.44 10^6/uL (4.35-5.55); RED CELL DISTRIBUTION WIDTH 12.9 % (11.5-14.0); TOTAL CELLS COUNTED % (AUTO) 100 %
[2018-04-11 07:07] LABS: WHITE BLOOD COUNT 16.4 10^3/uL (4.0-10.5)
[2018-04-11 07:08] LABS: ANION GAP 11 (5-19); BLOOD UREA NITROGEN 14 mg/dL (7-20); CALCIUM 9.4 mg/dL (8.4-10.2); CARBON DIOXIDE 30 mmol/L (22-30); CHLORIDE 102 mmol/L (98-107); GLUCOSE 134 mg/dL (75-110); POTASSIUM 4.6 mmol/L (3.6-5.0); SODIUM 142.9 mmol/L (137-145)
[2018-04-11] MEDS ORDERED: LEVOFLOXACIN 750 MG TABLET PO SCH (10:00)
[2018-04-11] MEDS: PREDNISONE 20 MG TABLET PO SCH (10:26)
[2018-04-11] MEDS: MONTELUKAST SODIUM 10 MG TABLET PO SCH (10:26)
[2018-04-11] MEDS: FLUTICASONE NASAL SPRAY 50 MCG/SPRY 120 SPRAY/16 GM NASL SCH (10:27)
[2018-04-11] MEDS: HYDROXYCHLOROQUINE SULFATE 200 MG TABLET PO SCH (10:27)
[2018-04-11 12:25] VITALS: BP 142/75
--- NOTE | 2018-04-11 21:32 | PDOC DISCHARGE SUMMARY ---
General - Admit/Disc Date/PCP Admission Date/Primary Care Provider: 04/09/18 23:17 EL SALINAS MD Discharge Date: 04/11/18 - Discharge Diagnosis (1) Sarcoidosis Is this a current diagnosis for this admission?: Yes Summary: The patient was admitted for complaint of increased shortness of breath and wheezing that did not respond to home treatments. He endorses a history of sarcoidosis on chronic prednisone and plaquenil therapy. He was admitted to the medical floor on continuous cardiac telemetry and supported with supplemental oxygen, scheduled and as needed nebulizer treatments. He is provided increased steroid dose; prednisone 20 mg twice daily and his home dose Plaquenil was continued. The patient symptoms rapidly improved. He was weaned to room air and by time of discharge was maintaining oxygen while ambulating on room air. He was instructed to follow up with his primary care provider within 1 week and with his meal grinder tender within 2 to 4 week. He was provided prescriptions for Ventolin HFA, Symbicort, Spiriva, Flonase, prednisone 20 mg daily #30, and Levaquin. A long discussion was had with regard to the importance of compliance with maintenance medications to prevent future exacerbations. At time of discharge the patient was in stable condition and reported that his symptoms had resolved. (2) Bronchitis Is this a current diagnosis for this admission?: Yes Summary: Due to the severity of the patient's symptoms, he was emprically placed on Levaquin. He remained afebrile, with normal WBCs, and stable chest xray. Blood cultures were negative at 48 hours. He was provided a prescription for levaquin at discharge to complete a 7 day course of therapy. (3) GERD (gastroesophageal reflux disease) Is this a current diagnosis for this admission?: Yes Summary: The patient is placed on proton pump inhibitor. He is educated with regard to avoiding tobacco/smoke exposure, reducing caffeine intake and avoiding meals for at least 1 hour prior to bed. Recommend the patient continue his omeprazole at discharge; he was educated that uncontrolled reflux symptoms may be contributing to his frequent nighttime respiratory symptoms. (4) Hypoxemia Is this a current diagnosis for this admission?: Yes Summary: Resolved. (5) HTN (hypertension) Is this a current diagnosis for this admission?: Yes Summary: Blood pressures were elevated to 161/85 at time of admission. Have trended down to 145/75 at time of discharge without use of antihypertensives. Recommend continued monitoring and likely medication management by his primary care provider. - Additional Information Resuscitation Status: Full Code Discharge Diet: Regular, Other (Comments) Discharge Activity: Activity As Tolerated, Balance Activity w/Rest Prescriptions: Albuterol Sulfate [Ventolin Hfa] 1 - 2 puff IH Q4 PRN #1 hfa.aer.ad PRN Reason: Budesonide/Formoterol Fumarate [Symbicort 160-4.5 Mcg Inhaler] 2 puff IH BID #1 hfa.aer.ad Levofloxacin [Levaquin 750 mg Tablet] 750 mg PO DAILY #5 tablet Prednisone [Deltasone 20 mg Tablet] 20 mg PO DAILY #30 tablet Tiotropium [place] [Spiriva Handihaler 5 Cap/Kit (18 Mcg/Cap)] 1 cap IH DAILY # 5 capsule Home Medications: Fluticasone Propionate [Flonase Nasal [place] 50 Mcg/[place] 16 gm] 1 spray NAREB DAILY 04/10/18 Hydroxychloroquine Sulfate 200 mg PO DAILY 04/10/18 Ipratropium/Albuterol Sulfate [Duoneb 3 ml Ampul] 3 ml NEB RTQ4HP PRN 04/10/18 Montelukast Sodium 10 mg PO DAILY 04/10/18 Omeprazole 40 mg PO DAILY 04/10/18 Acetaminophen [Tylenol 325 mg Tablet] 650 mg PO Q4HP PRN tablet 04/11/18 Albuterol Sulfate [Ventolin Hfa] 1 - 2 puff IH Q4 PRN #1 hfa.aer.ad 04/11/18 Budesonide/Formoterol Fumarate [Symbicort 160-4.5 Mcg Inhaler] 2 puff IH BID #1 hfa.aer.ad 04/11/18 Fluticasone Propionate [Flonase Nasal [place] 50 Mcg/[place] 16 gm] 2 spray NASL Q12 spray.pump 04/11/18 Levofloxacin [Levaquin 750 mg Tablet] 750 mg PO DAILY #5 tablet 04/11/18 Prednisone [Deltasone 20 mg Tablet] 20 mg PO DAILY #30 tablet 04/11/18 Tiotropium [place] [Spiriva Handihaler 5 Cap/Kit (18 Mcg/Cap)] 1 cap IH DAILY # 5 capsule 04/11/18 History of Present Illness History of Present Illness: Per H&P by Dr. Cheng: KELI PEREZ is a 62 year old male with a past medical history of pulmonary sarcoidosis followed at [place]. Patient has had several weeks of worsening wheeze and shortness of breath undergoing ENT evaluation at [place] last week without new findings. In the emergency room he has marketed wheeze nonproductive cough. Denies chest pain, clear sputum, rhinorrhea, sore throat and uncontrolled GERD. He notes exacerbations occurring more frequently when lying down. He receives IV Solu-Medrol, albuterol with Atrovent and supplemental oxygen. He has an unremarkable cardiac workup with a BNP of 26. He is referred to the hospitalist for admission. Physical Exam Vital Signs: Temp Pulse Resp BP Pulse Ox 97.8 F 86 20 142/75 H 95 04/11/18 12:22 04/11/18 12:22 04/11/18 12:22 04/11/18 12:22 04/11/18 12:22 Intake & Output 04/10/18 04/11/18 04/12/18 06:59 06:59 06:59 Intake Total 5 639 Output Total 520 Balance 5 119 Weight 83.6 kg 87.6 kg General appearance: PRESENT: no acute distress, cooperative, well-developed, well-nourished, other - OVerweight Head exam: PRESENT: atraumatic, normocephalic Eye exam: PRESENT: conjunctiva pink, EOMI, PERRLA. ABSENT: scleral icterus Ear exam: PRESENT: normal external ear exam Mouth exam: PRESENT: moist, tongue midline Neck exam: ABSENT: carotid bruit, JVD, lymphadenopathy, thyromegaly Respiratory exam: PRESENT: symmetrical, unlabored, wheezes - Occasional expiratory wheeze. ABSENT: rales, rhonchi Cardiovascular exam: PRESENT: RRR, +S1, +S2. ABSENT: diastolic murmur, rubs, systolic murmur Pulses: PRESENT: normal dorsalis pedis pul Vascular exam: PRESENT: normal capillary refill GI/Abdominal exam: PRESENT: normal bowel sounds, soft. ABSENT: distended, guarding, mass, organolmegaly, rebound, tenderness Rectal exam: PRESENT: deferred Extremities exam: PRESENT: full ROM. ABSENT: calf tenderness, clubbing, pedal edema Neurological exam: PRESENT: alert, awake, oriented to person, oriented to place , oriented to time, oriented to situation, CN II-XII grossly intact. ABSENT: motor sensory deficit Psychiatric exam: PRESENT: appropriate affect, normal mood. ABSENT: homicidal ideation, suicidal ideation Skin exam: PRESENT: dry, intact, warm. ABSENT: cyanosis, rash Results Laboratory Results: 04/11/18 04:49 04/11/18 04:49 04/11/18 04/11/18 04:49 04:49 WBC 16.4 H D RBC 4.44 Hgb 12.3 L Hct 37.2 L MCV 84 MCH 27.8 MCHC 33.2 RDW 12.9 Plt Count 202 Seg Neutrophils % 85.0 H Lymphocytes % 7.2 L Monocytes % 7.5 Eosinophils % 0.2 Basophils % 0.1 Absolute Neutrophils 13.9 H Absolute Lymphocytes 1.2 Absolute Monocytes 1.2 Absolute Eosinophils 0.0 Absolute Basophils 0.0 Sodium 142.9 Potassium 4.6 Chloride 102 Carbon Dioxide 30 Anion Gap 11 BUN 14 Creatinine 0.91 Est GFR ( Amer) > 60 Est GFR (Non-Af Amer) > 60 Glucose 134 H Calcium 9.4 Impressions: Chest X-Ray 04/09/18 19:31 IMPRESSION: Stable radiograph compared with October 2017. Qualifiers - * PATIENT BEING DISCHARGED WITH ANY OF THE FOLLOWING DIAGNOSIS: No Plan Discharge Plan: Follow up with primary care provider within 1 week. Follow up with meal grinder tender within 2-4 weeks. Return to the emergency department as needed. Time Spent: Less than 30 Minutes
== END 2018-04-11 13:09 | disposition home or self-care (01) | DRG 198 ==
LOC: ER 18:56 → EH 23:17 → 4S 04-10 01:10
PROVIDERS: ADMIT Internal Medicine; ATTEND Internal Medicine
PROC: 3E0F73Z Introduction of Anti-inflammatory into Respiratory Tract, Via Natural or Artificial Opening (ICD-10-PCS; principal; 2018-04-10)
PROC: 5A09457 Assistance with Respiratory Ventilation, 24-96 Consecutive Hours, Continuous Positive Airway Pressure (ICD-10-PCS; 2018-04-10)
DX: D86.0 Sarcoidosis of lung (principal); K21.9 Gastro-esophageal reflux disease without esophagitis; I10 Essential (primary) hypertension; R09.02 Hypoxemia; E66.3 Overweight; Z68.28 Body mass index [BMI] 28.0-28.9, adult; Z79.52 Long term (current) use of systemic steroids; Z79.899 Other long term (current) drug therapy; Z82.49 Family history of ischemic heart disease and other diseases of the circulatory system
CPT/HCPCS: 36415; 71045; 80048; 80053; 80307; 81001; 82550; 82553; 82803; 83880; 84484; 85025; 87040; 93005; 93010; 94640; 94799; 96374; 99285; J1644; J1956; J2930; J3490; J7512; J7620

== ENCOUNTER → 2018-08-16 | Outpatient (CLI) | payer BC ==
[2018-08-16 13:37] LABS: ABSOLUTE BASOPHILS # (AUTO) 0.1 10^3/uL (0.0-0.2); ABSOLUTE EOSINOPHILS # (AUTO) 0.5 10^3/uL (0.0-0.6); ABSOLUTE LYMPHOCYTES (AUTO) 1.6 10^3/uL (0.5-4.7); ABSOLUTE MONOCYTES (AUTO) 0.8 10^3/uL (0.1-1.4); ABSOLUTE NEUT (AUTO) 4.2 10^3/uL (1.7-8.2); BASOPHILS % (AUTO) 0.8 % (0-2); EOSINOPHILS % (AUTO) 6.9 % (0-6); HEMATOCRIT 37.7 % (37.9-51.0); HEMOGLOBIN 12.5 g/dL (13.5-17.0); LYMPHOCYTES % (AUTO) 21.9 % (13-45); MEAN CORPUSCULAR HEMOGLOBIN 27.4 pg (27.0-33.4); MEAN CORPUSCULAR HGB CONC 33.1 g/dL (32.0-36.0); MEAN CORPUSCULAR VOLUME 83 fl (80-97); MONOCYTES % (AUTO) 11.5 % (3-13); PLATELET COUNT 219 10^3/uL (150-450); RED BLOOD COUNT 4.55 10^6/uL (4.35-5.55); RED CELL DISTRIBUTION WIDTH 13.8 % (11.5-14.0); SEGMENTED NEUTROPHILS % (AUTO) 58.9 % (42-78); TOTAL CELLS COUNTED % (AUTO) 100 %; WHITE BLOOD COUNT 7.2 10^3/uL (4.0-10.5)
[2018-08-16 14:05] LABS: ALANINE AMINOTRANSFERASE 20 U/L (21-72); ALBUMIN 3.5 g/dL (3.5-5.0); ALKALINE PHOSPHATASE 73 U/L (38-126); ANION GAP 10 (5-19); ASPARTATE AMINO TRANSFERASE 25 U/L (17-59); BILIRUBIN,DIRECT 0.2 mg/dL (0.0-0.4); BILIRUBIN,TOTAL 0.4 mg/dL (0.2-1.3); BLOOD UREA NITROGEN 10 mg/dL (7-20); CALCIUM 9.1 mg/dL (8.4-10.2); CARBON DIOXIDE 32 mmol/L (22-30); CHLORIDE 101 mmol/L (98-107); GLUCOSE 107 mg/dL (75-110); POTASSIUM 3.5 mmol/L (3.6-5.0); SODIUM 143.4 mmol/L (137-145); TOTAL PROTEIN 6.6 g/dL (6.3-8.2)
== END ==
LOC: OD 12:46
PROVIDERS: ATTEND Internal Medicine Critical Care Medicine
DX: D86.0 Sarcoidosis of lung (principal); R91.8 Other nonspecific abnormal finding of lung field; R91.1 Solitary pulmonary nodule; R59.9 Enlarged lymph nodes, unspecified; R06.09 Other forms of dyspnea; J45.901 Unspecified asthma with (acute) exacerbation; R06.89 Other abnormalities of breathing
CPT/HCPCS: 36415; 80053; 85025

== ENCOUNTER → 2019-02-25 | Outpatient (CLI) | payer BC ==
[2019-02-25 13:05] LABS: ABSOLUTE MONOCYTES (AUTO) 0.5 10^3/uL (0.1-1.4); BASOPHILS % (AUTO) 0.3 % (0-2); EOSINOPHILS % (AUTO) 0.2 % (0-6); HEMOGLOBIN 12.1 g/dL (13.5-17.0); LYMPHOCYTES % (AUTO) 14.8 % (13-45); MEAN CORPUSCULAR HEMOGLOBIN 26.6 pg (27.0-33.4); MEAN CORPUSCULAR HGB CONC 32.6 g/dL (32.0-36.0); MEAN CORPUSCULAR VOLUME 82 fl (80-97); MONOCYTES % (AUTO) 8.3 % (3-13); PLATELET COUNT 214 10^3/uL (150-450); RED BLOOD COUNT 4.54 10^6/uL (4.35-5.55); RED CELL DISTRIBUTION WIDTH 13.8 % (11.5-14.0); SEGMENTED NEUTROPHILS % (AUTO) 76.4 % (42-78); TOTAL CELLS COUNTED % (AUTO) 100 %; WHITE BLOOD COUNT 6.5 10^3/uL (4.0-10.5)
[2019-02-25 13:25] LABS: ALANINE AMINOTRANSFERASE 28 U/L (21-72); ALBUMIN 3.5 g/dL (3.5-5.0); ALKALINE PHOSPHATASE 65 U/L (38-126); ANION GAP 9 (5-19); ASPARTATE AMINO TRANSFERASE 24 U/L (17-59); BILIRUBIN,DIRECT 0.2 mg/dL (0.0-0.4); BILIRUBIN,TOTAL 0.4 mg/dL (0.2-1.3); BLOOD UREA NITROGEN 10 mg/dL (7-20); CALCIUM 9.2 mg/dL (8.4-10.2); CARBON DIOXIDE 30 mmol/L (22-30); CHLORIDE 104 mmol/L (98-107); GLUCOSE 110 mg/dL (75-110); POTASSIUM 4.3 mmol/L (3.6-5.0); SODIUM 142.7 mmol/L (137-145); TOTAL PROTEIN 6.8 g/dL (6.3-8.2)
== END ==
LOC: OD 12:13
PROVIDERS: ATTEND Internal Medicine Critical Care Medicine
DX: J45.909 Unspecified asthma, uncomplicated (principal); R07.9 Chest pain, unspecified; R06.09 Other forms of dyspnea; R59.9 Enlarged lymph nodes, unspecified; R91.1 Solitary pulmonary nodule; R91.8 Other nonspecific abnormal finding of lung field; D86.0 Sarcoidosis of lung; R06.89 Other abnormalities of breathing
CPT/HCPCS: 36415; 80053; 85025

== ENCOUNTER → 2019-08-01 | Outpatient (CLI) | payer BC ==
--- NOTE | 2019-08-01 14:16 | RADIOLOGY REPORT (SQ) ---
EXAM DESCRIPTION: CT CHEST WITHOUT COMPLETED DATE/TIME: 08/01/2019 10:21 am REASON FOR STUDY: SOLITARY PULMONARY NODULE R91.1 SOLITARY PULMONARY NODULE COMPARISON: CT of the chest without contrast from 01/20/2018. TECHNIQUE: CT scan performed of the chest without intravenous contrast. Images reviewed with lung, soft tissue and bone windows. Reconstructed coronal and sagittal MPR images reviewed. All images st ored on PACS. All CT scanners at this facility use dose modulation, iterative reconstruction, and/or weight based d osing when appropriate to reduce radiation dose to as low as reasonably achievable (ALARA). [facility]: Dose Right [facility]: CareDose [facility]: Dose Right [facility]: Teradose 4D [facility]: Smart Technologies LIMITATIONS: No technical limitations. FINDINGS: LUNGS AND PLEURA: The trachea and main bronchi are patent. The areas of bronchiectasis in the right and left upper lobes are unchanged. There is an acute area of nodular consolidation in th e posterior basal segment of the left lower lobe. The other nodular opacities of varying sizes descr ibed on the prior CT are either unchanged or have decreased in size; for reference, the nodular opaci ty with internal calcifications in the left upper lobe (image 30 of series 4) measures 16 x 15 mm com pared to 17 x 60 mm on the prior CT, the noncalcified nodular opacity in the left lower lobe (image 6 6 of series 4) is unchanged in size and it measures 10 mm in long axis diameter, and nodular opacity in the right upper lobe (image 28 of series 4) measures 19 x 11 mm compared to 20 x 15 mm on the prio r CT. There is no pleural effusion or pneumothorax. HILAR AND MEDIASTINAL STRUCTURES: Stable enlarged and calcified mediastinal and hilar lymph nodes. HEART AND VASCULAR STRUCTURES: No thoracic aortic aneurysm, cardiomegaly or pericardial effusion. UPPER ABDOMEN: The layering hyperattenuation within the gallbladder lumen could represent combination of sludge and cholelithiasis; there is no associated gallbladder wall thickening or pericholecystic fluid. THYROID AND OTHER SOFT TISSUES: No masses or adenopathy. BONES: No acute findings. HARDWARE: None in the chest. OTHER: No other findings. IMPRESSION: 1. Acute area of nodular consolidation in the posterior basal segment of the left lower lobe. Correlation with clinical findings to exclude an infection is recommended. The other nodular o pacities of varying sizes described on the prior CT are either unchanged or have decreased in size. 2. Stable enlarged and calcified mediastinal and hilar adenopathy consistent with history of sarcoido sis. TECHNICAL DOCUMENTATION: JOB ID: [id number] Quality ID # [id number]: Final reports with documentation of one or more dose reduction techniques (e.g., Au tomated exposure control, adjustment of the mA and/or kV according to patient size, use of iterative reconstruction technique) 2010 [employer]- All Rights Reserved Reading location - IP/workstation name: [email or web address]
== END ==
LOC: RAD 10:12
PROVIDERS: ATTEND Internal Medicine Critical Care Medicine
DX: D86.0 Sarcoidosis of lung (principal); R91.1 Solitary pulmonary nodule; R91.8 Other nonspecific abnormal finding of lung field
CPT/HCPCS: 71250

== ENCOUNTER → 2020-01-16 | Outpatient (CLI) | payer MEDICARE, BC ==
--- NOTE | 2020-01-16 14:15 | RADIOLOGY REPORT (SQ) ---
EXAM DESCRIPTION: CT CHEST WITHOUT IMAGES COMPLETED DATE/TIME: 01/16/2020 1:47 pm REASON FOR STUDY: (R91.8)OTHER NONSPECIFIC ABNORMAL FINDING OF LUNG FIELD R91.8 OTHER NONSPECIFIC A BNORMAL FINDING OF LUNG FIELD D86.0 SARCOIDOSIS OF LUNG R91.1 SOLITARY PULMONARY NODULE COMPARISON: 08/01/2019 TECHNIQUE: CT scan performed of the chest without intravenous contrast. Images reviewed with lung, soft tissue and bone windows. Reconstructed coronal and sagittal MPR images reviewed. All images st ored on PACS. All CT scanners at this facility use dose modulation, iterative reconstruction, and/or weight based d osing when appropriate to reduce radiation dose to as low as reasonably achievable (ALARA). [facility]: Dose Right [facility]: CareDose [facility]: Dose Right [facility]: Teradose 4D [facility]: Smart e[employer]ight RADIATION DOSE: CT Rad equipment meets quality standard of care and radiation dose reduction techniq ues were employed. CTDIvol: 11.4 mGy. DLP: 455 mGy-cm. mGy. LIMITATIONS: No technical limitations. FINDINGS: LUNGS AND PLEURA: Chronic largely upper lobe scarring and nodularity without progression. Lower lobe nodules are nonprogressive. Largest is in the right lower lobe measuring up to just over 1 cm maximal dimension in the transverse plane. Previously noted left lower lobe consolidation has cleared. No developing pleural effusion or calcification. HILAR AND MEDIASTINAL STRUCTURES: Calcified mediastinal and hilar nodes. HEART AND VASCULAR STRUCTURES: No aneurysm. No pericardial effusion. UPPER ABDOMEN: No significant findings. Limited exam. THYROID AND OTHER SOFT TISSUES: No masses. No adenopathy. BONES: No significant finding. HARDWARE: None in the chest. OTHER: No other significant findings. IMPRESSION: 1. Chronic largely upper lobe pulmonary disease with extensive mediastinal and hilar calcified adenop athy. Consistent with the clinical history of sarcoid. 2. No new or suspicious findings. Previously noted left lower lobe infiltrate has cleared since last year's study. TECHNICAL DOCUMENTATION: JOB ID: [id number] Quality ID # [id number]: Final reports with documentation of one or more dose reduction techniques (e.g., Au tomated exposure control, adjustment of the mA and/or kV according to patient size, use of iterative reconstruction technique) 2010 [employer]- All Rights Reserved Reading location - IP/workstation name: [email or web address]
== END ==
LOC: RAD 13:36
PROVIDERS: ATTEND Internal Medicine Critical Care Medicine
DX: D86.0 Sarcoidosis of lung (principal); R91.1 Solitary pulmonary nodule; R91.8 Other nonspecific abnormal finding of lung field
CPT/HCPCS: 71250

== ENCOUNTER 2020-07-30 10:21 | Emergency (ER) | payer MEDICARE, BC ==
--- NOTE | 2020-07-30 10:48 | RADIOLOGY REPORT (SQ) ---
EXAM DESCRIPTION: CT HEAD WITHOUT IMAGES COMPLETED DATE/TIME: 07/30/2020 10:32 am REASON FOR STUDY: bed t2 stroke alert COMPARISON: MRI brain dated 03/14/2011 TECHNIQUE: Axial images acquired through the brain without intravenous contrast. Images reviewed wi th bone, brain and subdural windows. Additional sagittal and coronal reconstructions were generated. Images stored on PACS. All CT scanners at this facility use dose modulation, iterative reconstruction, and/or weight based d osing when appropriate to reduce radiation dose to as low as reasonably achievable (ALARA). [facility]: Dose Right [facility]: CareDose [facility]: Dose Right [facility]: Teradose 4D [facility]: Transfercar RADIATION DOSE: CT Rad equipment meets quality standard of care and radiation dose reduction techniq ues were employed. CTDIvol: 53.2 mGy. DLP: 1044 mGy-cm.mGy. LIMITATIONS: None. FINDINGS: VENTRICLES: Prominent. CEREBRUM: No masses. No hemorrhage. No midline shift. Areas of low density in the white matter mos t likely due to chronic micro-vascular ischemic change. No evidence for acute infarction. CEREBELLUM: No masses. No hemorrhage. No alteration of density. No evidence for acute infarction. EXTRAAXIAL SPACES: Age-related involutional change. No fluid collections. No masses. ORBITS AND GLOBE: No intra- or extraconal masses. Normal contour of globe without masses. CALVARIUM: No fracture. PARANASAL SINUSES: Retention cyst or polyp in the left maxillary sinus which is unchanged. SOFT TISSUES: No mass or hematoma. OTHER: No other significant finding. IMPRESSION: CHRONIC CHANGES OF ATROPHY AND MICROVASCULAR ISCHEMIA. NO ACUTE PROCESS. EVIDENCE OF ACUTE STROKE: NO. TECHNICAL DOCUMENTATION: JOB ID: [id number] Quality ID # 436: Final reports with documentation of one or more dose reduction techniques (e.g., Au tomated exposure control, adjustment of the mA and/or kV according to patient size, use of iterative reconstruction technique) 2010 [employer]- All Rights Reserved Reading location - IP/workstation name: [email or web address]
--- NOTE | 2020-07-30 10:51 | RADIOLOGY REPORT (SQ) ---
EXAM DESCRIPTION: CHEST SINGLE VIEW IMAGES COMPLETED DATE/TIME: 07/30/2020 10:33 am REASON FOR STUDY: bed t2 stroke alert clinical history of sarcoidosis COMPARISON: 01/06/2017 EXAM PARAMETERS: NUMBER OF VIEWS: One view. TECHNIQUE: Single frontal radiographic view of the chest acquired. RADIATION DOSE: NA LIMITATIONS: None. FINDINGS: LUNGS AND PLEURA: No opacities, masses or pneumothorax. No pleural effusion. MEDIASTINUM AND HILAR STRUCTURES: Bilateral hilar adenopathy. This is improved from prior study. HEART AND VASCULAR STRUCTURES: Mild cardiomegaly unchanged. BONES: No acute findings. HARDWARE: None in the chest. OTHER: No other significant finding. IMPRESSION: Slightly improved bilateral hilar adenopathy consistent with history of sarcoid. No oth er significant findings. TECHNICAL DOCUMENTATION: JOB ID: [id number] 2010 [employer]- All Rights Reserved Reading location - IP/workstation name: [email or web address]
--- NOTE | 2020-07-30 10:59 | ER Document Report ---
ED General - General Stated Complaint: POSSIBLE STROKE Time Seen by Provider: 07/30/20 10:36 Primary Care Provider: BHARGAV SULLIVAN MD [Primary Care Provider] - Follow up as needed Mode of Arrival: Medic Information source: Patient, Emergency Med Personnel Notes: 64-year-old black male arrives with chief complaint of neurological deficits and visual deficits which began around 0 945 while he was at his job. Patient reports as well as EMS reports of left-sided deficit and cannot see out of his left eye. He also reported 5 out of 10 headache left occipital and left dorsal head. At time of my exam at around 1040 patient was having no headache pain. Patient denies any chest pain and did advise he had some sore throat and congestion last night. He denies any earache nuchal rigidity nausea vomiting diarrhea constipation or coronavirus or influenza symptoms. 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 At 1053 he is still unable to see out of his left eye. I spoke with Allegra at [facility] at 1044 and she put me in contact with [facility] at 1044 with stroke alert system. They will be calling us back after facesheet has been sent. I spoke with Dr. Bennie Jacobsen neurologist at 1056 and he advises TPA and transfer to [facility]. At 1058 we noticed patient is able to raise his left upper extremity without difficulty by himself. Visual continued to be neglected.I spoke with Mima at bedside at 1107 TRAVEL OUTSIDE OF THE [place] IN LAST 30 DAYS: No - Related Data Allergies/Adverse Reactions: No Known Allergies Allergy (Verified 10/29/17 04:36) Past Medical History - General Information source: Patient - Social History Smoking Status: Never Smoker Cigarette use (# per day): No Chew tobacco use (# tins/day): No Smoking Education Provided: No Frequency of alcohol use: None Drug Abuse: None Lives with: Family Family History: Hypertension Patient has suicidal ideation: No Patient has homicidal ideation: No Pulmonary Medical History: Reports: Hx Bronchitis Renal/ Medical History: Denies: Hx Peritoneal Dialysis Past Surgical History: Reports: Hx Orthopedic Surgery - knee Physical Exam - Vital signs Vitals: Temp Resp Pulse Ox 98.5 F 20 100 07/30/20 10:21 07/30/20 10:21 07/30/20 10:21 Course - Vital Signs Vital signs: Temp Pulse Resp BP Pulse Ox 98.5 F 78 18 164/84 H 99 07/30/20 12:32 07/30/20 12:45 07/30/20 12:45 07/30/20 12:45 07/30/20 12:45 - Laboratory Result Diagrams: 07/30/20 10:40 07/30/20 10:40 Laboratory results interpreted by me: 07/30/20 07/30/20 07/30/20 10:34 10:40 10:40 Hgb 11.2 L Hct 34.5 L MCV 79 L MCH 25.6 L RDW 14.5 H Carbon Dioxide 31 H Glucose 122 H POC Glucose 125 H - Diagnostic Test Radiology reviewed: Reports reviewed - Plaque bilaterally on carotids as well as torturous right internal carotid. I advised patient and patient of these findings and patient's and patient advised they do not want TPA only aspirin.. This was at @1205; I told them of the 3-hour window. - EKG Interpretation by Me EKG shows normal: Sinus rhythm Rate: Tachycardia Rhythm: NSR - With heart rate 103 sinus tachycardia with PAC with no ST elevation and no ST depression and no T wave elevation and no T wave depression and this EKG was read by myself as well as the EKG machine. Critical Care Note - Critical Care Note Comments: Patient was stable upon transfer by ground unit to [facility] emergency department prior to stroke center. Discharge - Discharge Clinical Impression: Left arm weakness, Vision loss, left eye CVA (cerebral vascular accident) Qualifiers: CVA mechanism: unspecified Qualified Code(s): I63.9 - Cerebral infarction, unspecified Carotid artery plaque Qualifiers: Laterality: bilateral Qualified Code(s): I65.23 - Occlusion and stenosis of bilateral carotid arteries Condition: Stable Disposition: [facility] Additional Instructions: Transferred patient by ground to [facility] Referrals: BHARGAV SULLIVAN MD [Primary Care Provider] - Follow up as needed
[2020-07-30 11:02] LABS: ABSOLUTE EOSINOPHILS # (AUTO) 0.1 10^3/uL (0.0-0.6); ABSOLUTE LYMPHOCYTES (AUTO) 1.4 10^3/uL (0.5-4.7); ABSOLUTE MONOCYTES (AUTO) 0.7 10^3/uL (0.1-1.4); ABSOLUTE NEUT (AUTO) 4.8 10^3/uL (1.7-8.2); BASOPHILS % (AUTO) 0.6 % (0-2); HEMATOCRIT 34.5 % (37.9-51.0); HEMOGLOBIN 11.2 g/dL (13.5-17.0); LYMPHOCYTES % (AUTO) 19.7 % (13-45); MEAN CORPUSCULAR HEMOGLOBIN 25.6 pg (27.0-33.4); MEAN CORPUSCULAR HGB CONC 32.5 g/dL (32.0-36.0); MEAN CORPUSCULAR VOLUME 79 fl (80-97); PLATELET COUNT 214 10^3/uL (150-450); RED BLOOD COUNT 4.38 10^6/uL (4.35-5.55); RED CELL DISTRIBUTION WIDTH 14.5 % (11.5-14.0); SEGMENTED NEUTROPHILS % (AUTO) 67.7 % (42-78); TOTAL CELLS COUNTED % (AUTO) 100 %
[2020-07-30 11:04] LABS: PROTHROMBIN TIME 13.8 SEC (11.4-15.4)
[2020-07-30 11:05] LABS: INTERNATIONAL RATION (INR) 1.04; PARTIAL THROMBOPLASTIN TIME 25.3 SEC (23.5-35.8)
[2020-07-30] MEDS ORDERED: ASPIRIN 81 MG TABLET, CHEWABLE PO ONE (11:09)
[2020-07-30] MEDS ORDERED: ALTEPLASE INJ 100 MG VIAL IV ONE (11:10)
[2020-07-30 11:17] LABS: ALBUMIN 3.6 g/dL (3.5-5.0); ALKALINE PHOSPHATASE 64 U/L (38-126); ANION GAP 7 (5-19); ASPARTATE AMINO TRANSFERASE 34 U/L (17-59); BILIRUBIN,DIRECT 0.2 mg/dL (0.0-0.4); BILIRUBIN,TOTAL 0.4 mg/dL (0.2-1.3); BLOOD UREA NITROGEN 15 mg/dL (7-20); CARBON DIOXIDE 31 mmol/L (22-30); CHLORIDE 102 mmol/L (98-107); CREATINE KINASE 90 U/L (55-170); GLUCOSE 122 mg/dL (75-110); POTASSIUM 3.8 mmol/L (3.6-5.0); TOTAL PROTEIN 6.4 g/dL (6.3-8.2)
[2020-07-30 11:28] LABS: CREATINE KINASE MB 1.29 ng/mL (<4.55)
[2020-07-30 11:31] LABS: TROPONIN I < 0.012 ng/mL
--- NOTE | 2020-07-30 11:59 | RADIOLOGY REPORT (SQ) ---
EXAM DESCRIPTION: CTA HEAD IMAGES COMPLETED DATE/TIME: 07/30/2020 11:46 am REASON FOR STUDY: cva COMPARISON: None. TECHNIQUE: Post IV contrast scanning, thin section axial imaging through the brain to evaluate the a rterial structures. Source and MIP images are saved and reviewed on PACS. Advanced 3D imaging as volume-rendering, MIPs, SSD performed? yes All CT scanners at this facility use dose modulation, iterative reconstruction, and/or weight based d osing when appropriate to reduce radiation dose to as low as reasonably achievable (ALARA). [facility]: Dose Right [facility]: CareDose [facility]: Dose Right [facility]: Teradose 4D [facility]: Geddit CONTRAST TYPE AND DOSE: contrast/concentration: Isovue 350.00 mmol/ml; Total Contrast Delivered: 80. 0 ml; Total Saline Delivered: 65.0 ml RENAL FUNCTION: BUN 15, creatinine 0.89 LIMITATIONS: None. FINDINGS: [place]: The anterior, middle, posterior cerebral arteries are all patent. No ev idence of aneurysm or focal stenosis. POSTERIOR CIRCULATION: The distal vertebral arteries are patent as is the basilar artery. No aneurysm . BRAIN: No gross enhancing lesions as visualized. The superior cerebral hemispheres are not included in the field of view. BONES: Intact as visualized. SINUSES: No fluid or mucosal thickening. OTHER: Very ectatic right internal carotid artery which ascends midline beginning at the C2-3 intersp bharati before diving laterally at the the skullbase. IMPRESSION: NO CTA EVIDENCE OF STENOSIS OR ANEURYSM OF THE [place]. TECHNICAL DOCUMENTATION: JOB ID: [id number] Quality ID # 436: Final reports with documentation of one or more dose reduction techniques (e.g., Au tomated exposure control, adjustment of the mA and/or kV according to patient size, use of iterative reconstruction technique) 2010 [employer]- All Rights Reserved Reading location - IP/workstation name: [email or web address]
--- NOTE | 2020-07-30 12:02 | RADIOLOGY REPORT (SQ) ---
EXAM DESCRIPTION: CTA NECK IMAGES COMPLETED DATE/TIME: 07/30/2020 11:47 am REASON FOR STUDY: cva COMPARISON: CT brain done earlier the same day. TECHNIQUE: Axial dynamic scanning technique with dynamic contrast enhancement through the extra-leather scraper nial carotid and vertebral arteries. Multiplanar reconstruction. 3-D MIPS and Volume-rendered imag es acquired at the workstation and saved to PACS. Images are reviewed in soft tissue, bone, lung w indows. All CT scanners at this facility use dose modulation, iterative reconstruction, and/or weight based d osing when appropriate to reduce radiation dose to as low as reasonably achievable (ALARA). [facility]: Dose Right [facility]: CareDose [facility]: Dose Right [facility]: Teradose 4D [facility]: octoScope CONTRAST TYPE AND DOSE: 80 mL Omnipaque 350 RENAL FUNCTION: BUN 15, creatinine 0.9 LIMITATIONS: None. FINDINGS: AORTIC ARCH: Bovine origin of the left common carotid artery. RIGHT CAROTIDS: Very tortuous right internal carotid artery. The artery diodes medially just above t he bifurcation there is moderate calcified plaque. No high-grade stenosis. RIGHT VERTEBRAL: Patent. No dissection. LEFT CAROTIDS: Patent common, internal external carotid arteries. Calcified plaque at the carotid bu lb and bifurcation. No high-grade stenosis. LEFT VERTEBRAL: Patent. No dissection. OTHER: No other significant finding. OTHER: 3-D reconstructions confirm findings. IMPRESSION: Calcified plaque bilaterally. Tortuous right internal carotid artery as described. No high-grade stenosis. COMMENT: Quality ID #[id number]: Measurements of distal internal carotid diameter were used as the denomina tor for stenosis measurement. TECHNICAL DOCUMENTATION: JOB ID: [id number] Quality ID # 436: Final reports with documentation of one or more dose reduction techniques (e.g., Au tomated exposure control, adjustment of the mA and/or kV according to patient size, use of iterative reconstruction technique) 2010 [employer]- All Rights Reserved Reading location - IP/workstation name: [email or web address]
--- NOTE | 2020-07-30 12:56 | EKG REPORT ---
SEVERITY:- NORMAL ECG - SINUS RHYTHM : Confirmed by: Ab Bishop MD 30-Jul-2020 12:55:44
[2020-07-30 13:13] VITALS: BP 164/84
== END 2020-07-30 12:46 | disposition short-term general hospital (02) ==
LOC: ER 10:21
DX: I63.9 Cerebral infarction, unspecified (principal); I65.23 Occlusion and stenosis of bilateral carotid arteries; M62.81 Muscle weakness (generalized); H54.7 Unspecified visual loss; R51.9 Headache, unspecified
CPT/HCPCS: 93005; 99285; 36415; 82553; 82962; 82550; 85025; 85610; 85730; 80053; 84484; 71045; 70450; 70496; 70498; 93010; A9270

== ENCOUNTER 2020-08-15 19:46 | Emergency (ER) | payer MEDICARE, BC ==
--- NOTE | 2020-08-15 19:53 | ER Document Report ---
ED General - General Chief Complaint: S/S of Possible Stroke Stated Complaint: STROKE Time Seen by Provider: 08/15/20 19:46 Primary Care Provider: BHARGAV SULLIVAN MD [Primary Care Provider] - Follow up as needed TRAVEL OUTSIDE OF THE [place] IN LAST 30 DAYS: No - HPI Notes: 65-year-old male arrives as a stroke alert. Reported last known normal 185. Per EMS report patient was walking and talking around his house, he suddenly had left-sided weakness and fell onto the couch. He then became aphasic and EMS reports no movement to the left side of his body. Apparently had a "mini stroke" 2 weeks ago and has been home from rehab for the past week. History is limited due to acuity of condition and somewhat patient participation. - Related Data Allergies/Adverse Reactions: No Known Allergies Allergy (Verified 10/29/17 04:36) Past Medical History - General Information source: Emergency Med Personnel - Social History Smoking Status: Unknown if Ever Smoked Family History: Hypertension Pulmonary Medical History: Reports: Hx Bronchitis Renal/ Medical History: Denies: Hx Peritoneal Dialysis Past Surgical History: Reports: Hx Orthopedic Surgery - knee Review of Systems - Review of Systems -: Yes ROS unobtainable due to patient's medical condition Physical Exam - Vital signs Vitals: Pulse Resp BP Pulse Ox 91 24 H 143/78 H 100 08/15/20 19:59 08/15/20 19:59 08/15/20 19:59 08/15/20 19:59 - General General appearance: Alert - HEENT Head: Normocephalic, Atraumatic Pupils: PERRL - Respiratory Breath sounds: Normal - Cardiovascular Rhythm: Regular Heart sounds: Normal auscultation Pulses: Normal: Radial, Dorsalis pedis - Abdominal Tenderness: Nontender - Extremities General lower extremity: No: Edema - Neurological Notes: Patient initially evaluated on EMS stretcher, he was alert, no verbal response, refusing to move left side. Patient was then reevaluated once he had return from CT and was now in his room. Initially patient with eyes closed, did not open eyes when approaching from the left side using loud voice and pinching arm. He did open his eyes to loud voice and touch on the right side. He intermi ttently answers questions. Left facial droop. He is able to state his name and age, then refuses to answer other questions. He freely moves his right arm and leg. He does not follow commands to move left arm, when arm is lifted off the bed it does not fall immediately. He was noted to raise his right arm twice while yawning. He does not make any attempt to move his left leg, denies sensation to the left leg. No clonus of the lower extremities. He was able to identify some pictures, however did not comment on the situational pictures. Initial NIHSS 18. - Psychological Associated symptoms: Flat affect - Skin Skin Temperature: Warm Course - Re-evaluation Re-evalutation: 65-year-old male arrives as a code stroke from home, at 1852 patient was witnessed at home to have sudden onset weakness and fall to the ground. Apparently has had a recent stroke and has been home from rehab from 1 week, apparently has been walking and talking per usual. Reviewed previous ED note from 07/30, he came for left arm and vision changes. He had negative LVO. He declined tPA. Tx to [facility]. On exam, patient has some neuro findings. When approaching him from the left patient did not open his eyes at all, concern for potential hemineglect. When approaching from the right he opens his eyes and talks, he has full motor to his right arm and leg. He does not have volitional movement of his left arm, however when he yawns his arm does raise an attempt to cover his mouth. He has no motor or sensory to the left leg. His initial NIHSS is 18. He was sent immediately to head CT including CTAs upon his arrival. Would be concerned for another acute CVA, head bleed possible as well. 08/15/20 20:42 Called [facility] to receive more information about patient's admission there 08/15/20 20:59 I discussed with Michelle BROOKS at [facility]. Reviewed patient's recent admission, on 1026 he was diagnosed with multifocal acute strokes involving the right hemisphere, he was not given tPA at the time. She states that he would not be a tPA candidate given his recent diagnosis of strokes. We are still pending CTA reads, if a LVO was present they will accept him for mechanical intervention. If negative for LVO he can come to the hospital service as a ro utine transfer. 08/15/20 21:12 Reached out to radiology partners, apparently there were some images missing which accounts for the delay in read 08/15/20 21:33 Neurology has called back and has independently reviewed imaging, does not believe there to be an LVO. Again final read still awaiting. We have agreed that patient will be admitted to the hospitalist service. 08/15/20 21:52 Wanted to update patient and daughter on results. Daughter states that while at [facility] he had a loop recorder implanted, she states that they were not given a definite reason on why he is having 70 strokes. No initiation of blood thinners. Has just been on aspirin and a cholesterol medication. I updated her on the plan to transfer back to [facility] and that he is not a tPA candidate given the recent strokes. I had ordered aspirin for patient, however a lot of water spilled out of the left side of his mouth while attempting to drink so we will hold on this and have it reevaluated. 08/15/20 22:08 No LVO. Redoes comment that there is concern for bilateral pulmonary consolidation seen on the outdoor adventure instructor imaging, have reviewed chest x-ray and there are no consolidations per the chest x-ray, additional patient does not voice any respiratory symptoms 08/15/20 22:10 No leukocytosis or left shift. Chronic anemia. Electrolytes within normal limits, creatinine within normal limits. Mild transaminitis, unspecific. Normal INR with low LUCITA 08/15/20 22:17 Have not received call back from hospitalist at [facility], transfer center to repage again 08/15/20 22:[address] Leonard in transfer - Vital Signs Vital signs: Temp Pulse Resp BP Pulse Ox 98.5 F 91 23 H 158/85 H 100 08/15/20 20:00 08/15/20 19:59 08/15/20 21:46 08/15/20 21:46 08/15/20 21:45 - Laboratory Result Diagrams: 08/15/20 20:08 08/15/20 20:08 Laboratory results interpreted by me: 08/15/20 08/15/20 08/15/20 20:08 20:08 20:08 RBC 4.14 L Hgb 10.8 L Hct 32.9 L MCV 79 L MCH 26.1 L RDW 14.6 H APTT < 20.0 L* Sodium 136.7 L Glucose 142 H AST 63 H ALT 60 H Albumin 3.2 L - Diagnostic Test Radiology reviewed: Image reviewed, Reports reviewed - EKG Interpretation by Me Additional EKG results interpreted by me: EKG is interpreted by me. Sinus rhythm, rate 88. Narrow QRS, QTC within normal limits. No ST segment elevation. Discharge - Discharge Clinical Impression: Acute CVA (cerebrovascular accident) Disposition: [facility] Referrals: BHARGAV SULLIVAN MD [Primary Care Provider] - Follow up as needed
--- NOTE | 2020-08-15 20:02 | RADIOLOGY REPORT (SQ) ---
EXAM DESCRIPTION: CT HEAD WITHOUT IMAGES COMPLETED DATE/TIME: 08/15/2020 7:53 pm REASON FOR STUDY: stroke, L deficits COMPARISON: 08/01/2020 TECHNIQUE: Axial images acquired through the brain without intravenous contrast. Images reviewed wi th bone, brain and subdural windows. Additional sagittal and coronal reconstructions were generated. Images stored on PACS. All CT scanners at this facility use dose modulation, iterative reconstruction, and/or weight based d osing when appropriate to reduce radiation dose to as low as reasonably achievable (ALARA). [facility]: Dose Right [facility]: CareDose [facility]: Dose Right [facility]: Teradose 4D [facility]: Smart AppSense RADIATION DOSE: mGy. LIMITATIONS: None. FINDINGS: VENTRICLES: Prominent. CEREBRUM: No masses. No hemorrhage. No midline shift. Areas of low density in the white matter mos t likely due to chronic micro-vascular ischemic change. No evidence for acute infarction. CEREBELLUM: No masses. No hemorrhage. No alteration of density. No evidence for acute infarction. EXTRAAXIAL SPACES: Mild age-related involutional change. No fluid collections. No masses. ORBITS AND GLOBE: No intra- or extraconal masses. Normal contour of globe without masses. CALVARIUM: No fracture. PARANASAL SINUSES: No fluid or mucosal thickening. SOFT TISSUES: No mass or hematoma. OTHER: No other significant finding. IMPRESSION: MILD CHRONIC CHANGES OF ATROPHY AND MICROVASCULAR ISCHEMIA. NO ACUTE PROCESS. EVIDENCE OF ACUTE STROKE: NO. TECHNICAL DOCUMENTATION: JOB ID: [id number] Quality ID # 436: Final reports with documentation of one or more dose reduction techniques (e.g., Au tomated exposure control, adjustment of the mA and/or kV according to patient size, use of iterative reconstruction technique) 2010 [employer]- All Rights Reserved Reading location - IP/workstation name: [email or web address]
[2020-08-15 20:18] LABS: HEMATOCRIT 32.9 % (37.9-51.0); HEMOGLOBIN 10.8 g/dL (13.5-17.0); MEAN CORPUSCULAR HEMOGLOBIN 26.1 pg (27.0-33.4); MEAN CORPUSCULAR HGB CONC 32.8 g/dL (32.0-36.0); MEAN CORPUSCULAR VOLUME 79 fl (80-97); PLATELET COUNT 152 10^3/uL (150-450); RED BLOOD COUNT 4.14 10^6/uL (4.35-5.55); RED CELL DISTRIBUTION WIDTH 14.6 % (11.5-14.0); WHITE BLOOD COUNT 7.3 10^3/uL (4.0-10.5)
[2020-08-15 20:36] LABS: INTERNATIONAL RATION (INR) 1.03; PARTIAL THROMBOPLASTIN TIME < 20.0 SEC (23.5-35.8); PROTHROMBIN TIME 13.7 SEC (11.4-15.4)
[2020-08-15 20:41] LABS: ALBUMIN 3.2 g/dL (3.5-5.0); ALKALINE PHOSPHATASE 117 U/L (38-126); ANION GAP 10 (5-19); ASPARTATE AMINO TRANSFERASE 63 U/L (17-59); BILIRUBIN,TOTAL 0.3 mg/dL (0.2-1.3); BLOOD UREA NITROGEN 8 mg/dL (7-20); CALCIUM 8.4 mg/dL (8.4-10.2); CARBON DIOXIDE 25 mmol/L (22-30); CHLORIDE 102 mmol/L (98-107); GLUCOSE 142 mg/dL (75-110); POTASSIUM 4.1 mmol/L (3.6-5.0); TOTAL PROTEIN 6.3 g/dL (6.3-8.2)
[2020-08-15 20:43] LABS: ABSOLUTE LYMPHOCYTES# (MANUAL) 1.6 10^3/uL (0.5-4.7); ABSOLUTE MONOCYTES # (MANUAL) 0.8 10^3/uL (0.1-1.4); ANISOCYTOSIS SLIGHT; BASOPHILS % (MANUAL) 0 % (0-2); EOSINOPHILS % (MANUAL) 0 % (0-6); LYMPHOCYTES % (MANUAL) 20 % (13-45); MONOCYTES % (MANUAL) 11 % (3-13); PLATELET COMMENT ADEQUATE; SEGMENTED NEUTROPHILS % (MAN) 67 % (42-78); TOTAL CELLS COUNTED 100
--- NOTE | 2020-08-15 20:44 | RADIOLOGY REPORT (SQ) ---
EXAM DESCRIPTION: XR CHEST 1 VIEW COMPLETED DATE/TME: 08/15/2020 20:01 CLINICAL HISTORY: 65 years, Male, stroke COMPARISON: Chest x-ray 07/30/2020. CT chest 01/16/2020. TECHNIQUE: Upright portable chest x-ray FINDINGS: Mild cardiomegaly. Mild mediastinal widening unchanged and related to ectatic aorta and main pulmonary artery. Bilateral hilar fullness which on previous CT was related to multiple calcifications and prominence of the central hilar vessels. No overt acute lung or pleural abnormality.
--- NOTE | 2020-08-15 21:01 | ER Document Report ---
ED [employer]te[employer]/Exc Criteria - Inclusion Criteria: 1: Patient presented to ED within 3 hours of acute ischemic stroke symptom onset? -: Yes 2: Did baseline CT exclude intracranial hemorrhage and/or other risk factors? -: Yes 3: Is the age of the patient 18 years of age or greater? -: Yes : If any of the above questions are answered "NO" then stop, patient is not a candidate for Alteplase, : If all of the above questions are answered "YES" then continue with Exclusion Criteria. - Exclusion Criteria: 1: Is there evidence of intracranial hemorrhage on baseline CT? -: No 2: Is there suspicion of subarachnoid hemorrhage (even if CT negative)? -: No 3: Is there a history of serious head trauma, recent previous stroke or NE within 3 months? -: Yes 4: Does the patient have a clinical presentation consistent with NE or post-NE pericarditis? 5: Is there history of intracranial hemorrhage? 6: On repeated measurement is Systolic BP greater than 185mmHg or Diastolic BP greater that 110 mmHg and is aggressive treatment needed to reduce blood pressure to these limits (e.g. constant infusion of an anti-hypertensive)? 7: Did the patient awake with stroke symptoms? 8: Has the patient had a lumbar puncture or an arterial puncture at a non-compre ssile site within 7 days? 9: With in the last 14 days did the patient have surgery or major trauma? 10: Is the patient or less than 2 weeks? 11: Was there any active bleeding or acute trauma? 12: Does the patient have intracranial neoplasm, arteriovenous malformation or aneurysm? 13: Does the patient have abnormal glucose (less than 50 or greater than 400mg/dl)? Record glucose in Comment. 14: Patient has rapidly improving symptoms at the time Alteplase is to be Administered. 15: Does the patient have any risks for bleeding, including but not limited to: a.: Current use of Coumadin with PT greater than 15 seconds or INR greater than 1.7. b.: Current use of Pradaxa (Dabigatran). c.: Heparin administereed within the past 48 hours and PTT elevated. d.: Platelet count less than 100,000/mm. e.: Major surgery or serious trauma within 14 days. f.: Gastrointestinal or gynecological urinary bleeding within 14 days. g.: Myocardial Infarction (NE) within 3 months. : If the answer to any of the above questions is "YES" then stop, the patient is not a candidate for Alteplase. : If the answer to all of the above questions is "NO" then the patient may be eligible for the Administration of Alteplase. : If the patient is noted to have seizure activity at onset of Stroke symptoms; Consult Neurologist for further evaluation. - The patient is: -: Included and is eligible to receive Alteplase. *Initiate bed placement at higher level of care* Reviewed risks & benefits of thrombolytic therapy: I have reviewed the risks and benefits of thrombolytic therapy with the patient and/or his/her family. -: Excluded and not eligible to receive Alteplase for the above exclusions. -: Excluded and not eligible to receive Alteplase for other reasons (specify in comments): - Diagnosis of TIA: -: Patient presented with transient symptoms that are now resolved and no other neurologic findings are currently present. List symptoms in comments. -: Patient is NOT a candidate for tPA. -: ____(put name in comment) has been consulted for admission and continued evaluation of risk factor assessment.
[2020-08-15] MEDS ORDERED: ASPIRIN 81 MG TABLET, CHEWABLE PO ONE (21:32)
--- NOTE | 2020-08-15 21:54 | RADIOLOGY REPORT (SQ) ---
EXAM DESCRIPTION: CT HEAD ANGIOGRAPHY WITHOUT THEN WITH IV CONTRAST, CT NECK ANGIOGRAPHY WITHOUT THEN WITH IV CONTRAST COMPLETED DATE/TME: 08/15/2020 19:54 CLINICAL HISTORY: 65 years, Male, stroke, L deficits EXAM DESCRIPTION: CTA HEAD (accession [id number]), CTA NECK (accession [id number]) CLINICAL HISTORY: stroke, L deficits COMPARISON: None Available TECHNIQUE: Contiguous axial CT images of the head and neck were obtained. Images were obtained prior to and following intravenous contrast administration. Coronal and sagittal reconstructions were then created along with MIPs through the vessels of [place] and the neck. This exam was performed according to our departmental dose-optimization program, which includes automated exposure control, adjustment of the mA and/or kV according to patient size and/or use of iterative reconstruction technique. NASCET criteria utilized for the evaluation of any stenotic lesions. FINDINGS: Integrated Marketing Specialist view reveals bilateral consolidations and pulmonary edema. There is calcification of the origin of the right ICA with approximately 50% narrowing. Calcification of the left ICA origin does not cause significant stenosis. The right ICA courses to the midline and attention is recommended if surgery is planned. There are scattered mildly enlarged lymph nodes at the floor of the mouth and in the neck bilaterally. There is enlargement of the left sternocleidomastoid muscle that is nonspecific. Possibilities include muscle spasm, inflammation, neoplasm, or torticollis. There is no additional evidence of flow-limiting stenosis, vascular malformation, or aneurysm in the vessels of the [place] or neck. IMPRESSION: Stenoses as above. Bilateral consolidations. Enlarged left sternocleidomastoid muscle. See additional comments.
--- NOTE | 2020-08-15 21:54 | RADIOLOGY REPORT (SQ) ---
EXAM DESCRIPTION: CT HEAD ANGIOGRAPHY WITHOUT THEN WITH IV CONTRAST, CT NECK ANGIOGRAPHY WITHOUT THEN WITH IV CONTRAST COMPLETED DATE/TME: 08/15/2020 19:54 CLINICAL HISTORY: 65 years, Male, stroke, L deficits EXAM DESCRIPTION: CTA HEAD (accession [id number]), CTA NECK (accession [id number]) CLINICAL HISTORY: stroke, L deficits COMPARISON: None Available TECHNIQUE: Contiguous axial CT images of the head and neck were obtained. Images were obtained prior to and following intravenous contrast administration. Coronal and sagittal reconstructions were then created along with MIPs through the vessels of [place] and the neck. This exam was performed according to our departmental dose-optimization program, which includes automated exposure control, adjustment of the mA and/or kV according to patient size and/or use of iterative reconstruction technique. NASCET criteria utilized for the evaluation of any stenotic lesions. FINDINGS: Enamel Finisher view reveals bilateral consolidations and pulmonary edema. There is calcification of the origin of the right ICA with approximately 50% narrowing. Calcification of the left ICA origin does not cause significant stenosis. The right ICA courses to the midline and attention is recommended if surgery is planned. There are scattered mildly enlarged lymph nodes at the floor of the mouth and in the neck bilaterally. There is enlargement of the left sternocleidomastoid muscle that is nonspecific. Possibilities include muscle spasm, inflammation, neoplasm, or torticollis. There is no additional evidence of flow-limiting stenosis, vascular malformation, or aneurysm in the vessels of the [place] or neck. IMPRESSION: Stenoses as above. Bilateral consolidations. Enlarged left sternocleidomastoid muscle. See additional comments.
[2020-08-16] MEDS ORDERED: MORPHINE SULFATE 10 MG/ML INJ IV ONE (01:46)
--- NOTE | 2020-08-16 01:57 | ER Document Report ---
Doctor's Note Notes: 08/16/20 01:56 Care of this patient was turned over to me during my shift. In short this is a 65-year-old gentleman who presented with symptoms consistent with a CVA. He had a recently CVA, so was not a candidate for TPA as a result. The patient remained stable. He does have some dysarthria and mild aphasia but has imp roved. He has no complaints or concerns, he is stable for transport.
[2020-08-16 02:07] VITALS: BP 143/86
[2020-08-16] MEDS ORDERED: ENOXAPARIN SODIUM INJ 40 MG/0.4 ML DISP.SYRIN SUBCUT SCH (10:00)
[2020-08-16] MEDS ORDERED: ASPIRIN 81 MG TABLET, CHEWABLE PO SCH (10:00)
[2020-08-16] MEDS ORDERED: ATORVASTATIN CALCIUM 40 MG TABLET PO SCH (22:00)
--- NOTE | 2020-08-17 00:32 | EKG REPORT ---
SEVERITY:- NORMAL ECG - SINUS RHYTHM : Confirmed by: Cherise Benavidez 17-Aug-2020 00:31:03
--- OUTSIDE RECORDS SUMMARY | 2020-08-17 14:47 | XMS REPORT ---
:1955 [facility] Address [facility] [address] [place] [address] Care Team Providers Name Role Phone BRAD LC Primary Care Physician Unavailable Shae Attending Clinician Unavailable Shae Attending Clinician Unavailable HUY MAYS Attending Clinician Unavailable MOJGAN ARGUETA Attending Clinician Unavailable MOJGAN ARGUETA Admitting Clinician Unavailable Allergies, Adverse Reactions, Alerts This patient has no known allergies or adverse reactions. Medications Ordered Filled Start Stop Current Ordering Indication Dosage Frequency Signature Comments Components Medication Medication Date Date Medication? Clinician (SIG) Name Name predniSONE Yes sarcoidosis 10mg Take 10 mg Take 10 (DELTASONE) 7-02 by mouth mg by 10 MG 13:18: daily. mouth tablet 51 daily. ipratropium 2018- No 3mL Inhale 3 Inha le 3 -albuterol 03-15 06-11 mL by mL by (DUO-NEB) 15:23: 00:00 nebulizati nebu lizat 0.5-2.5 51 :00 on every ion every mg/3 mL four (4) four (4) nebulizer hours as hours a s needed. needed. Dx: Dx: Sarcoid Sarcoid D86.0 D86.0 ipratropium 2019- No 3mL Inhale 3 Inha le 3 -albuterol 6 06-11 mL by mL by (DUO-NEB) 00:00: 23:59 nebulizati nebu lizat 0.5-2.5 00 :00 on every ion every mg/3 mL four (4) four (4) nebulizer hours as hours a s needed. needed. Dx: Dx: Sarcoid Sarcoid D86.0 D86.0 montelukast 2019- No Moderate 10MG Take 1 Hugo e 1 (SINGULAIR) 6-11 06-11 persistent tablet (1 0 tablet 10 mg 00:00: 23:59 asthma mg total) (10 mg tablet 00 :00 without by mouth total) b y complicatio daily. mouth n daily. fluticasone 2019- No Moderate 1{spray 1 spray by 1 spray (FLONASE) 03-15 persistent } Each Nare b y Each 50 00:00: 23:59 asthma route Nare mcg/actuati 00 :00 without daily. route on nasal complicatio daily . spray n ipratropium 2019- No 500ug Inhale 2.5 In salazar (ATROVENT) 5-05 05-05 mL (500 2.5 mL 0.02 % 00:00: 23:59 mcg total) (500 mc g nebulizer 00 :00 by total) by solution nebulizati nebuli zat on every ion every four (4) four (4) hours as hours as needed for needed wheezing. for wheezing. albuterol Yes 2.5mg Inhale 2.5 Inha le 2.5 mg /3 5-04 mg by 2.5 mg by mL (0.083 11:23: nebulizati nebu lizat %) 37 on every ion every nebulizer six (6) six (6) solution hours as hours as needed for needed wheezing. for wheezing. predniSONE No SARCOIDOSIS 10MG Take 10 mg Take 10 (DELTASONE) 5-03 by mouth mg by 10 MG 18:39: daily. mouth tablet 58 daily. hydroxychlo Yes Take by Take by roquine 5-03 mouth mouth (PLAQUENIL) 18:39: daily. daily. 200 mg 58 tablet albuterol Yes 2{puff} Inhale 2 Inha le 2 (PROVENTIL 5-03 puffs puffs HFA;VENTOLI 18:39: every six wiliam ry six N HFA) 90 58 (6) hours (6) ho urs mcg/actuati as needed as n eeded on inhaler for for wheezing. wheezing. omeprazole Yes 40mg Take 40 mg Hugo e 40 (PRILOSEC) 5-03 by mouth mg by 40 MG 18:39: daily. mouth capsule 58 daily. budesonide- Yes 2{puff} Inhale 2 In salazar 2 formoterol 5-03 puffs 2 puffs 2 (SYMBICORT) 18:39: (two) (two) 160-4.5 58 times a times a mcg/actuati day. day. on inhaler predniSONE No 20MG Take 20 mg Hugo e 20 (DELTASONE) 4-13 by mouth mg by 20 MG 00:00: daily. mouth tablet 00 daily. 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 Active 2018-03-15 persistent persistent 03-15 15:46:32 asthma asthma 00:00: without without 00 complicatio complicatio n n Sarcoidosis Sarcoidosis [id number] Active 2018-02-04 5- 18:59:29 00:00: 00 Shortness Shortness [id number] Active 2018-02-04 of breath of breath 02-04 18:59:28 00:00: 00 Procedures Procedure Date / Time Performed Performing Clinician Devic e OFFICE OUTPT EST15 MIN 2019-01-18 13:28:00 URNLS DIP STICK/TABLET RGNT 2019-01-18 13:28:00 NON-AUTO W/O RAIN HGB GLYCOSYLATED 2019-01-18 13:28:00 MOST RECENT HEMOGLOBIN A1C 2019-01-18 13:28:00 LEVEL > 9.0% OFFICE OUTPT EST15 MIN 2018-12-18 09:59:00 URNLS DIP STICK/TABLET RGNT 2018-12-18 09:59:00 NON-AUTO W/O RAIN HANDLG\\T\\/OR CONVEY OF SPEC FOR 2018-12-18 09:59:00 TR OFFICE TO LAB ASPERGILLUS SPECIFIC 2018-03-15 20:03:00 Georges Cruz PRECIPITINS CBC W/ AUTO DIFF 2018-03-15 20:03:00 Georges Cruz PERENNIAL ALLERGEN PANEL IGE 2018-03-15 20:03:00 Georgse Cruz RESPIRATORY ALLERGY PANEL 2 2018-03-15 20:03:00 Georges Cruz LUNG VOLUMES VIA 2018-03-15 18:50:53 Georges Cruz PLETHYSMOGRAPHY DIFFUSION STUDIES 2018-03-15 18:50:53 Georges Cruz FLOW VOLUME LOOPS PRE/POST 2018-03-15 18:50:[address] BODY OUTSIDE FILM FOR 2018-02-05 17:23:39 Kenan Argueta CONTINUED CARE ECHOCARDIOGRAM W COLORFLOW 2018-02-05 12:03:11 Yobani Mya Salazar SPECTRAL DOPPLER XR CHEST PA AND LATERAL 2018-02-04 13:14:37 Karma Middleton EMERGENCY ROOM PROCEDURE 2018-02-04 12:10:00 Long Bhatia dean Julien PEAK FLOW 2018-02-04 11:24:35 Karma Middleton Results Test Description Test Time Test Comments Text Results Atomic Results Result Comments Lipid Panel 2020-06-27 12:26:00 Test Item Value Reference Range Comments HDL Cholesterol (test code = 2501) 50.000 mg/dL >39 Cholesterol, Total (test code = 2500) 144.000 mg/dL 100-199 Triglycerides (test code = 2503) 117.000 mg/dL 0-149 Vldl Cholesterol Jyoti (test code = 4237) 21.000 mg/dL 5-40 Ldl Chol Calc (nih) (test code = 4238) 73.000 mg/dL 0-99 CBC ([id number]) [id number] 12:26:00 Test Item Value Reference Range Comments Eos (test code = 2348) 2.000 % 0-7 MCHC (test code = 2359) 32.400 g/dL 32.0-36.0 Baso (Absolute) (test code = 2346) 0.000 x10E3/uL 0.0-0.2 Immature Grans (Abs) (test code = 2354) 0.000 x10E3/uL 0.0-0.1 Neutrophils (Absolute) (test code = 2364) 5.500 x10E3/uL 1.8-7. 8 Neutrophils (test code = 2363) 68.000 % 40-74 Lymphs (Absolute) (test code = 2357) 1.500 x10E3/uL 0.7-4.5 Monocytes(Absolute) (test code = 2362) 0.900 x10E3/uL 0.1-1.0 Eos (Absolute) (test code = 2349) 0.200 x10E3/uL 0.0-0.4 Basos (test code = 2347) 1.000 % 0-3 Platelets (test code = 2366) 231.000 x10E3/uL 140-415 RDW (test code = 2368) 13.200 % 11.7-15.0 Hemoglobin (test code = 2352) 11.300 g/dL 12.5-17.0 Monocytes (test code = 2361) 11.000 % 4-13 Hematocrit (test code = 2350) 34.900 % 36.0-50.0 WBC (test code = 2369) 8.200 x10E3/uL 4.0-10.5 MCH (test code = 2358) 25.700 pg 27.0-34.0 Immature Granulocytes (test code = 2355) 0.000 % 0-2 RBC (test code = 2367) 4.400 x10E6/uL 4.10-5.60 Lymphs (test code = 2356) 18.000 % 14-46 MCV (test code = 2360) 79.000 fL 80-98 Lipid [id number] 15:21:00 Test Item Value Reference Range Comments HDL Cholesterol (test code = 2501) 60.000 mg/dL >39 Triglycerides (test code = 2503) 293.000 mg/dL 0-149 Cholesterol, Total (test code = 2500) 165.000 mg/dL 100-199 LDL Cholesterol Calc (test code = 2502) 46.000 mg/dL 0-99 VLDL Cholesterol Jyoti (test code = 2504) 59.000 mg/dL 5-40 [id number] 15:21:00 Test Item Value Reference Range Comments TSH (test code = 2280) 0.875 uIU/mL 0.450-4.500 CBC ([id number]) [id number] 15:21:00 Test Item Value Reference Range Comments Hematocrit (test code = 2350) 37.100 % 36.0-50.0 MCHC (test code = 2359) 32.600 g/dL 32.0-36.0 Lymphs (Absolute) (test code = 2357) 1.500 x10E3/uL 0.7-4.5 Immature Granulocytes (test code = 2355) 0.000 % 0-2 Eos (test code = 2348) 10.000 % 0-7 Eos (Absolute) (test code = 2349) 0.800 x10E3/uL 0.0-0.4 Monocytes(Absolute) (test code = 2362) 0.800 x10E3/uL 0.1-1.0 MCV (test code = 2360) 84.000 fL 80-98 MCH (test code = 2358) 27.300 pg 27.0-34.0 Neutrophils (Absolute) (test code = 2364) 4.500 x10E3/uL 1.8-7. 8 Monocytes (test code = 2361) 11.000 % 4-13 Lymphs (test code = 2356) 20.000 % 14-46 WBC (test code = 2369) 7.700 x10E3/uL 4.0-10.5 Immature Grans (Abs) (test code = 2354) 0.000 x10E3/uL 0.0-0.1 RDW (test code = 2368) 13.500 % 11.7-15.0 Neutrophils (test code = 2363) 59.000 % 40-74 Baso (Absolute) (test code = 2346) 0.000 x10E3/uL 0.0-0.2 Basos (test code = 2347) 0.000 % 0-3 Platelets (test code = 2366) 252.000 x10E3/uL 140-415 Hemoglobin (test code = 2352) 12.100 g/dL 12.5-17.0 RBC (test code = 2367) 4.440 x10E6/uL 4.10-5.60 CMP14 (317763) [id number] 15:21:00 Test Item Value Reference Range Comments A/G Ratio (test code = 2319) 1.200 1.1-2.5 Albumin, Serum (test code = 2320) 3.800 g/dL 3.5-5.5 Sodium, Serum (test code = 2337) 140.000 mmol/L 135-145 Glucose, Serum (test code = 2334) 112.000 mg/dL 65-99 Bilirubin, Total (test code = 2324) 0.200 mg/dL 0.0-1.2 BUN/Creatinine Ratio (test code = 2326) 12.000 8-19 Carbon Dioxide, Total (test code = 2328) 28.000 mmol/L 20-32 Potassium, Serum (test code = 2335) 4.700 mmol/L 3.5-5.2 Calcium, Serum (test code = 2327) 9.500 mg/dL 8.7-10.2 Creatinine, Serum (test code = 2330) 0.810 mg/dL 0.76-1.27 ALT (SGPT) (test code = 2322) 13.000 IU/L 0-55 Globulin, Total (test code = 2333) 3.200 g/dL 1.5-4.5 BUN (test code = 2325) 10.000 mg/dL 6-20 Protein, Total, Serum (test code = 2336) 7.000 g/dL 6.0-8.5 Alkaline Phosphatase, S (test code = 73.000 IU/L 25-150 2321) Egfr If Africn Am (test code = 3068) 109.000 mL/min/1.73 >59 eGFR If NonAfricn Am (test code = 2332) 94.000 mL/min/1.73 >59 AST (SGOT) (test code = 2323) 21.000 IU/L 0-40 Chloride, Serum (test code = 2329) 95.000 mmol/L 97-108 Prostate-Specific Ag, [id number] 15:21:00 Test Item Value Reference Range Comments Prostate Specific Ag, Serum 2.500 ng/mL 0.0-4.0 Roch e ECLIA (test code = 2286) methodology.\\ X000d\\\\X0A\\ .\\X000d\\ \\X0A\\ According to e [employer], Serum PSA should\\X000d \\\\X0A\\ decrease and re main at undetectable lev els after radical\\X000d\\\\X 0A\\ prostatectomy. The AUA defines biochemi jyoti recurrence as an initial\\X0 00d\\\\X0A\\ PSA value 0.2 n g/mL or greater followed by a subsequent confirmatory\\X00 0d\\\\X0A\\ PSA value 0.2 n g/mL or greater.\\X000d\\\\ X0A\\ Values obtained with different assay methods or kits cannot be used\\X000d\\\\X0A\\ interchangeably . Results cannot be interp reted as absolute evidenc e\\X000d\\\\X0A\\ of the presence or absence of malignant diseas e.\\X000d\\\\X0A\\ #[id number] 16:03:00 Test Item Value Reference Range Comments IgE, Total (test code = IgE, Total) 229 kU/L 3- 48 kU/L D. pteronyssinus IgE (test code = D. pteronyssinus <0.35 <0.35 kUA/L IgE) D. farinae IgE (test code = D. farinae IgE) <0.35 <0.3 5 kUA/L Cat dander IgE (test code = Cat dander IgE) <0.35 <0.3 5 kUA/L Dog Dander IgE (test code = Dog Dander IgE) <0.35 <0.3 5 kUA/L [place] Grass IgE (test code = [place] Grass IgE) <0.35 <0.35 kUA/L Vj Grass IgE (test code = Vj Grass IgE) <0.35 <0.35 kUA/L Aqu[place] Grass IgE (test code = Aquiles Grass IgE) <0.35 <0.35 kUA/L [place] Cockroach IgE (test code = [place] Cockroach <0.35 <0.35 kUA/L IgE) P chrysogenum (P notatum) IgE (test code = P <0.35 <0. 35 kUA/L chrysogenum (P notatum) IgE) Cladosporium Herbarum IgE (test code = Cladosporium <0.35 <0.35 kUA/L Herbarum IgE) Aspergillus fumigatus IgE (test code = Aspergillus <0.35 <0.35 kUA/L fumigatus IgE) Alternaria alternata IgE (test code = Alternaria <0.35 <0.35 kUA/L alternata IgE) [place] Tree IgE (test code = [place] Tree IgE) <0.35 <0.35 kUA/L Birch (Common Silver) tree IgE (test code = Birch <0.35 <0.35 kUA/L (Common Silver) tree IgE) [place] Star Tree IgE (test code = [place] Star Tree IgE) <0.35 <0.35 kUA/L Elm Tree IgE (test code = Elm Tree IgE) <0.35 <0.35 kU A/L [place] ([place]) Tree IgE (test code = <0.35 <0.35 kUA/L [place] ([place]) Tree IgE) Pecan [place]our IgE (test code = Pecan [place] IgE) <0.35 <0.35 kUA/L Ragweed, short (common) IgE (test code = Ragweed, <0.35 <0.35 kUA/L short (common) IgE) Pigweed, Common IgE (test code = Pigweed, Common <0.35 <0.35 kUA/L IgE) Sheep Torboy IgE (test code = Sheep Torboy IgE) <0.35 <0.35 kUA/L #[id number] 16:03:00 Test Item Value Reference Range Comments WBC (test code = WBC) 7.5 10*9/L 4.5- 11.0 10*9/L RBC (test code = RBC) 4.51 10*12/L 4.50- 5.90 10*12/L HGB (test code = HGB) 12.2 g/dL 13.5- 17.5 g/dL HCT (test code = HCT) 38.6 % 41.0- 53.0 % MCV (test code = MCV) 85.5 fL 80.0- 100.0 fL MCH (test code = MCH) 27.2 pg 26.0- 34.0 pg MCHC (test code = MCHC) 31.8 g/dL 31.0- 37.0 g/dL RDW (test code = RDW) 12.3 % 12.0- 15.0 % MPV (test code = MPV) 8.4 fL 7.0- 10.0 fL Platelet (test code = Platelet) 237 10*9/L 150- 440 10*9/L Absolute Neutrophils (test code = Absolute 5.8 10*9/L 2.0- 7.5 10*9/L Neutrophils) Absolute Lymphocytes (test code = Absolute 1.0 10*9/L 1.5- 5.0 10*9/L Lymphocytes) Absolute Monocytes (test code = Absolute 0.5 10*9/L 0.2- 0. 8 10*9/L Monocytes) Absolute Eosinophils (test code = Absolute 0.1 10*9/L 0.0- 0.4 10*9/L Eosinophils) Absolute Basophils (test code = Absolute 0.0 10*9/L 0.0- 0. 1 10*9/L Basophils) Large Unstained Cells (test code = Large 2 % 0- 4 % Unstained Cells) #[id number] 16:03:00 Test Item Value Reference Range Comments IgE, Total (test code = IgE, Total) 225 kU/L 3- 48 kU/L #[id number] 16:03:00 Test Item Value Reference Range Comments Total IgE (test code = Total IgE) 253 IU/mL 3- 48 IU/mL A. fumigatus IgE (test code = A. fumigatus IgE) <0.10 <0.35 kU/L A. fumigatus IgE Class (test code = A. fumigatus 0 IgE Class) A. fumigatus IgG (test code = A. fumigatus IgG) 7.5 mcg/mL <46.0 mcg/mL A. fumigatus Mixed Gel Diffusion (test code = A. Negative Negative fumigatus Mixed Gel Diffusion) #[id number] 16:03:00 Test Item Value Reference Range Comments D. farinae IgE (test code = D. farinae IgE) <0.35 <0.3 5 kUA/L D. pteronyssinus IgE (test code = D. pteronyssinus <0.35 <0.35 kUA/L IgE) Cat dander IgE (test code = Cat dander IgE) <0.35 <0.3 5 kUA/L Dog Dander IgE (test code = Dog Dander IgE) <0.35 <0.3 5 kUA/L [place] Cockroach IgE (test code = [place] Cockroach <0.35 <0.35 kUA/L IgE) #[id number] 14:30:51 Test Item Value Reference Range Comments FEV1 POST (test code = 1.44 L 2.46878- 3.96465 L FEV1 POST) FEV1/FVC POST (test code = 65.87 % 67.3056- 88.1396 % FEV1/FVC POST) FVC POST (test code = FVC 2.19 L 2.85498- 4.34309 L POST) PEF POST (test code = PEF 5.06 L/s 5.10577- 10.09187 L/s POST) VOL extrap post (test code 0.01 L = VOL extrap post) FIVC POST (test code = 0.24 L 2.88121- 4.42869 L FIVC POST) PIF POST (test code = PIF 2.12 L/s 3.32534- 3.19507 L/s POST) FIF50% POST (test code = 1.99 L/s -0.4642 - 8.8198 L-s FIF50% POST) FEV6 POST (test code = 2.11 L 2.6536- 4.33681 L FEV6 POST) FEV1/FEV6 POST (test code 68.31 % 70.7575- 90.4815 % = FEV1/FEV6 POST) FEF50% POST (test code = 1.2 L/s FEF50% POST) JNF81-37% POST (test code 0.78 L/s 0.85349- 4.35391 L/s = FQJ12-34% POST) FEF/FIF50 post (test code 60.14 % = FEF/FIF50 post) SHAHWM29-11 POST (test 0.93 L/s code = PCBNVW51-65 POST) JPK133% POST (test code = 8.96 sec QFM806% POST) FEV1 PRE (test code = FEV1 1.18 L 2.42338- 3.27032 L PRE) FEV1/FVC PRE (test code = 54.8 % 67.3056- 88.1396 % FEV1/FVC PRE) FVC PRE (test code = FVC 2.15 L 2.58695- 4.74118 L PRE) PEF PRE (test code = PEF 3.8 L/s 5.19836- 10.09626 L/s PRE) Vol extrap pre (test code -0.01 L = Vol extrap pre) FIVC PRE (test code = FIVC 1.98 L 2.60341- 4.63992 L PRE) PIF PRE (test code = PIF 2.72 L/s 3.77594- 3.08990 L/s PRE) FIF50% PRED (test code = 2.67 L/s -0.4642 - 8.8198 L-s FIF50% PRED) FEV6 PRE (test code = FEV6 1.93 L 2.6536- 4.50940 L PRE) FEV1/FEV6 PRE (test code = 61.03 % 70.7575- 90.4815 % FEV1/FEV6 PRE) FEF50% PRE (test code = 0.63 L/s FEF50% PRE) WGH95-55% PRE (test code = 0.45 L/s 0.14445- 4.75497 L/s EQH77-32% PRE) FEF/FIF50 pre (test code = 23.47 % FEF/FIF50 pre) VWWSHJ17-77 PRE (test code 0.45 L/s = QIVCOI69-68 PRE) XBJ216% Change (test code 12.02 sec = ZSX262% Change) IC PRE (test code = IC 1.53 L PRE) FRC PL PRE (test code = 2.[address] PRE) RV PRE (test code = RV 1.6 L 1.22020- 2.51692 L PRE) TLC PRE (test code = TLC 3.74 L 4.32731- 7.78269 L PRE) RV/TLC PRE (test code = 42.67 % 24.727- 42.327 % RV/TLC PRE) VC PRE (test code = VC 2.15 L 2.64846- 4.75224 L PRE) ERV PRE (test code = ERV 0.44 L 1.31046- 1.05856 L PRE) DLCO PRE (test code = DLCO 15.1 ml/(min*mmHg) 18.854417792522930 - PRE) 34.545045085198845 ml/(min*mmHg) BHT POST (test code = BHT 10.84 sec POST) DLCO/VA POST (test code = 4.69 ml/(min*mmHg*L) 3.199212349191660 5- DLCO/VA POST) 5.562709585565458 ml/(min*mmHg*L) VA PRE (test code = VA 3.22 L 5.70346- 5.27313 L PRE) IVC PRE (test code = IVC 2.13 L 2.41663- 4.86525 L PRE) DL Adj PRE (test code = DL 15.1 ml/(min*mmHg) Adj PRE) DL/VA Adj PRE (test code = 4.69 ml/(min*mmHg*L) DL/VA Adj PRE) #[id number] 14:30:51 Test Item Value Reference Range Comments FEV1 POST (test code = 1.44 L 2.07209- 3.91484 L FEV1 POST) FEV1/FVC POST (test code = 65.87 % 67.3056- 88.1396 % FEV1/FVC POST) FVC POST (test code = FVC 2.19 L 2.15077- 4.06969 L POST) PEF POST (test code = PEF 5.06 L/s 5.11266- 10.48210 L/s POST) VOL extrap post (test code 0.01 L = VOL extrap post) FIVC POST (test code = 0.24 L 2.47204- 4.40824 L FIVC POST) PIF POST (test code = PIF 2.12 L/s 3.39752- 3.60121 L/s POST) FIF50% POST (test code = 1.99 L/s -0.4642 - 8.8198 L-s FIF50% POST) FEV6 POST (test code = 2.11 L 2.6536- 4.20242 L FEV6 POST) FEV1/FEV6 POST (test code 68.31 % 70.7575- 90.4815 % = FEV1/FEV6 POST) FEF50% POST (test code = 1.2 L/s FEF50% POST) GFK44-79% POST (test code 0.78 L/s 0.03158- 4.31527 L/s = YWE56-63% POST) FEF/FIF50 post (test code 60.14 % = FEF/FIF50 post) SNZBUY02-21 POST (test 0.93 L/s code = EXJEBU90-19 POST) FKV581% POST (test code = 8.96 sec VQV189% POST) FEV1 PRE (test code = FEV1 1.18 L 2.33098- 3.64570 L PRE) FEV1/FVC PRE (test code = 54.8 % 67.3056- 88.1396 % FEV1/FVC PRE) FVC PRE (test code = FVC 2.15 L 2.50619- 4.37194 L PRE) PEF PRE (test code = PEF 3.8 L/s 5.21590- 10.36138 L/s PRE) Vol extrap pre (test code -0.01 L = Vol extrap pre) FIVC PRE (test code = FIVC 1.98 L 2.33634- 4.78415 L PRE) PIF PRE (test code = PIF 2.72 L/s 3.24960- 3.89303 L/s PRE) FIF50% PRED (test code = 2.67 L/s -0.4642 - 8.8198 L-s FIF50% PRED) FEV6 PRE (test code = FEV6 1.93 L 2.6536- 4.73323 L PRE) FEV1/FEV6 PRE (test code = 61.03 % 70.7575- 90.4815 % FEV1/FEV6 PRE) FEF50% PRE (test code = 0.63 L/s FEF50% PRE) UQG58-10% PRE (test code = 0.45 L/s 0.18044- 4.43919 L/s PEU95-16% PRE) FEF/FIF50 pre (test code = 23.47 % FEF/FIF50 pre) UYVYPW00-71 PRE (test code 0.45 L/s = XIQZEA67-19 PRE) XRB936% Change (test code 12.02 sec = JVT960% Change) IC PRE (test code = IC 1.53 L PRE) FRC PL PRE (test code = 2.[address] PRE) RV PRE (test code = RV 1.6 L 1.38753- 2.97843 L PRE) TLC PRE (test code = TLC 3.74 L 4.93854- 7.97699 L PRE) RV/TLC PRE (test code = 42.67 % 24.727- 42.327 % RV/TLC PRE) VC PRE (test code = VC 2.15 L 2.18861- 4.95631 L PRE) ERV PRE (test code = ERV 0.44 L 1.47362- 1.14954 L PRE) DLCO PRE (test code = DLCO 15.1 ml/(min*mmHg) 18.192935874808269 - PRE) 34.685431426603377 ml/(min*mmHg) BHT POST (test code = BHT 10.84 sec POST) DLCO/VA POST (test code = 4.69 ml/(min*mmHg*L) 3.909379317331485 5- DLCO/VA POST) 5.444132615141659 ml/(min*mmHg*L) VA PRE (test code = VA 3.22 L 5.03466- 5.46966 L PRE) IVC PRE (test code = IVC 2.13 L 2.35029- 4.67285 L PRE) DL Adj PRE (test code = DL 15.1 ml/(min*mmHg) Adj PRE) DL/VA Adj PRE (test code = 4.69 ml/(min*mmHg*L) DL/VA Adj PRE) #[id number] 14:30:51 Test Item Value Reference Range Comments FEV1 POST (test code = 1.44 L 2.76761- 3.59463 L FEV1 POST) FEV1/FVC POST (test code = 65.87 % 67.3056- 88.1396 % FEV1/FVC POST) FVC POST (test code = FVC 2.19 L 2.60469- 4.58647 L POST) PEF POST (test code = PEF 5.06 L/s 5.00928- 10.69565 L/s POST) VOL extrap post (test code 0.01 L = VOL extrap post) FIVC POST (test code = 0.24 L 2.18247- 4.15265 L FIVC POST) PIF POST (test code = PIF 2.12 L/s 3.18096- 3.36617 L/s POST) FIF50% POST (test code = 1.99 L/s -0.4642 - 8.8198 L-s FIF50% POST) FEV6 POST (test code = 2.11 L 2.6536- 4.37263 L FEV6 POST) FEV1/FEV6 POST (test code 68.31 % 70.7575- 90.4815 % = FEV1/FEV6 POST) FEF50% POST (test code = 1.2 L/s FEF50% POST) FYP43-19% POST (test code 0.78 L/s 0.47179- 4.23224 L/s = XQM24-65% POST) FEF/FIF50 post (test code 60.14 % = FEF/FIF50 post) KLBKLP94-57 POST (test 0.93 L/s code = BPBZCW08-55 POST) UYN933% POST (test code = 8.96 sec MTK588% POST) FEV1 PRE (test code = FEV1 1.18 L 2.24010- 3.76092 L PRE) FEV1/FVC PRE (test code = 54.8 % 67.3056- 88.1396 % FEV1/FVC PRE) FVC PRE (test code = FVC 2.15 L 2.21434- 4.75067 L PRE) PEF PRE (test code = PEF 3.8 L/s 5.03103- 10.85907 L/s PRE) Vol extrap pre (test code -0.01 L = Vol extrap pre) FIVC PRE (test code = FIVC 1.98 L 2.44031- 4.90804 L PRE) PIF PRE (test code = PIF 2.72 L/s 3.86903- 3.07329 L/s PRE) FIF50% PRED (test code = 2.67 L/s -0.4642 - 8.8198 L-s FIF50% PRED) FEV6 PRE (test code = FEV6 1.93 L 2.6536- 4.04347 L PRE) FEV1/FEV6 PRE (test code = 61.03 % 70.7575- 90.4815 % FEV1/FEV6 PRE) FEF50% PRE (test code = 0.63 L/s FEF50% PRE) WIB63-21% PRE (test code = 0.45 L/s 0.45793- 4.42155 L/s OMK75-78% PRE) FEF/FIF50 pre (test code = 23.47 % FEF/FIF50 pre) HMIXCH59-90 PRE (test code 0.45 L/s = AAKJFU23-99 PRE) MDG640% Change (test code 12.02 sec = SYL783% Change) IC PRE (test code = IC 1.53 L PRE) FRC PL PRE (test code = 2.[address] PRE) RV PRE (test code = RV 1.6 L 1.95072- 2.43078 L PRE) TLC PRE (test code = TLC 3.74 L 4.96670- 7.09599 L PRE) RV/TLC PRE (test code = 42.67 % 24.727- 42.327 % RV/TLC PRE) VC PRE (test code = VC 2.15 L 2.61242- 4.59366 L PRE) ERV PRE (test code = ERV 0.44 L 1.44865- 1.60148 L PRE) DLCO PRE (test code = DLCO 15.1 ml/(min*mmHg) [id number] - PRE) 34.393218859096456 ml/(min*mmHg) BHT POST (test code = BHT 10.84 sec POST) DLCO/VA POST (test code = 4.69 ml/(min*mmHg*L) 3.041561051157304 5- DLCO/VA POST) 5.936870442070900 ml/(min*mmHg*L) VA PRE (test code = VA 3.22 L 5.70419- 5.76525 L PRE) IVC PRE (test code = IVC 2.13 L 2.08281- 4.72736 L PRE) DL Adj PRE (test code = DL 15.1 ml/(min*mmHg) Adj PRE) DL/VA Adj PRE (test code = 4.69 ml/(min*mmHg*L) DL/VA Adj PRE) CT Body Outside Film For Continued [id number] 17:23:39CT Body Outside Film For Continued Care (02/05/2018 5:23 PM) Specimen Performing Laboratory [facility] Narrative These images were imported for continued care purposes only. They will not be interpretedand no charges will apply.Echocardiogram W Colorflow Spectral [id number] 12:03:11 Test Item Value Reference Range Comments LV Diastolic Diameter PLAX (test code = LV 4.1 cm Diastolic Diameter PLAX) LV Systolic Diameter PLAX (test code = LV Systolic 2.7 cm Diameter PLAX) IVS Diastolic Thickness (test code = IVS Diastolic 1.0 cm Thickness) LVPW Diastolic Thickness (test code = LVPW 1.0 cm Diastolic Thickness) Aortic Root Diameter (test code = Aortic Root 3.3 cm Diameter) LA Systolic Diameter LX (test code = LA Systolic 3.0 cm Diameter LX) AV Peak Velocity (test code = AV Peak Velocity) 1.4 m/s AV Peak Gradient (test code = AV Peak Gradient) 8.0 Mitral E Point Velocity (test code = Mitral E Point 0.0 m/s Velocity) MV AREA PHT (test code = MV AREA PHT) 0.3 cm2 MV PRESSURE HALF TIME (test code = MV PRESSURE HALF 683.0 ms TIME) Basic metabolic [id number] 05:58:00 Test Item Value Reference Range Comments Sodium (test code = Sodium) 137 mmol/L 135- 145 mmol/L Potassium (test code = Potassium) 3.9 mmol/L 3.5- 5.0 mmol/ L Chloride (test code = Chloride) 99 mmol/L 98- 107 mmol/L CO2 (test code = CO2) 28.0 mmol/L 22.0- 30.0 mmol/L BUN (test code = BUN) 10 mg/dL 7- 21 mg/dL Creatinine (test code = Creatinine) 0.80 mg/dL 0.70- 1.30 m g/dL BUN/Creatinine Ratio (test code = 13 BUN/Creatinine Ratio) GFR MDRD Non Af Amer (test code = GFR MDRD >=60 >=60 mL/min/1.73m2 Non Af Amer) GFR MDRD Af Amer (test code = GFR MDRD Af >=60 >=60 m L/min/1.73m2 Amer) Anion Gap (test code = Anion Gap) 10 mmol/L 9- 15 mmol/L Glucose (test code = Glucose) 120 mg/dL 65- 179 mg/dL Calcium (test code = Calcium) 9.2 mg/dL 8.5- 10.2 mg/dL [id number] 05:58:00 Test Item Value Reference Range Comments PRO-BNP (test code = PRO-BNP) 37.5 pg/mL 0.0- 177.0 pg/mL CBC w/ [id number] 05:58:00 Test Item Value Reference Range Comments WBC (test code = WBC) 7.9 10*9/L 4.5- 11.0 10*9/L RBC (test code = RBC) 4.05 10*12/L 4.50- 5.90 10*12/L HGB (test code = HGB) 11.4 g/dL 13.5- 17.5 g/dL HCT (test code = HCT) 34.3 % 41.0- 53.0 % MCV (test code = MCV) 84.7 fL 80.0- 100.0 fL MCH (test code = MCH) 28.2 pg 26.0- 34.0 pg MCHC (test code = MCHC) 33.3 g/dL 31.0- 37.0 g/dL RDW (test code = RDW) 12.1 % 12.0- 15.0 % MPV (test code = MPV) 7.9 fL 7.0- 10.0 fL Platelet (test code = Platelet) 220 10*9/L 150- 440 10*9/L Absolute Neutrophils (test code = Absolute 5.4 10*9/L 2.0- 7.5 10*9/L Neutrophils) Absolute Lymphocytes (test code = Absolute 1.1 10*9/L 1.5- 5.0 10*9/L Lymphocytes) Absolute Monocytes (test code = Absolute 0.7 10*9/L 0.2- 0. 8 10*9/L Monocytes) Absolute Eosinophils (test code = Absolute 0.4 10*9/L 0.0- 0.4 10*9/L Eosinophils) Absolute Basophils (test code = Absolute 0.0 10*9/L 0.0- 0. 1 10*9/L Basophils) Large Unstained Cells (test code = Large 3 % 0- 4 % Unstained Cells) [id number] 05:58:00 Test Item Value Reference Range Comments Creatine Kinase, Total (test code = Creatine 142.0 U/L 70. 0- 185.0 U/L Kinase, Total) [id number] 05:58:00 Test Item Value Reference Range Comments TSH (test code = TSH) 0.409 uIU/mL 0.600- 3.300 uIU/mL CBC w/ [id number] 05:58:00CBC w/ Differential (02/05/2018 5:58 AM) Specimen Performing Laboratory Blood [facility] Narrative The following orders were created for panel order CBC w/ Differential. Procedure Abnormality Status --------- ------ CBC w/ Differential[[id number]] AbnormalFinal result Please view results for these tests on the individual orders.XR Chest PA and [id number] 13:14:37XR Chest PA and Lateral (02/04/2018 1:14 PM) Specimen Performing Laboratory [facility] [place] [facility] [address] [place] [address] Impressions -Prominence/nodularity of bilateral john with perihilar/upper lobe predominant pulmonary nodularity. Constellation of findings could represent sarcoidosis. Other or underlying process difficult to exclude, and chest CT (preferably with contrast) could be considered for better characterization. Narrative EXAM: XR CHEST PA AND LATERAL DATE: 02/04/2018 1:14 PM DICTATED: 02/04/2018 1:20 PM INTERPRETATION LOCATION: [facility] CLINICAL INDICATION: 62 years old Male with SHORTNESS OF BREATH-- COMPARISON: None TECHNIQUE:Upright PA and lateral views ofthe chest. FINDINGS: Lungs well inflated. Nodular opacities in a bilateral perihilar/upper lobe predominant distribution. No pneumothoraces or pleural effusions. Cardiac silhouette within normal limits. Prominence/nodularity in bilateral john and mediastinum. No acute osseous abnormalities. Pro cedure Note Interface, Rad Results In - 02/04/2018 1:25 PM EDT EXAM: XR CHEST PA AND LATERAL DATE: 02/04/2018 1:14 PM DICTATED: 02/04/2018 1:20 PM INTERPRETATION LOCATION: [facility] CLINICAL INDICATION: 62 years old Male with SHORTNESS OF BREATH-- COMPARISON: None TECHNIQUE:Upright PA and lateral views of the chest. FINDINGS: Lungs well inflated. Nodular opacities in a bilateral perihilar/upper lobe predominant distribution. No pneumothoraces or pleural effusions. Cardiac silhouette within normal limits. Prominence/nodularity in bilateral john and mediastinum. No acute osseous abnormalities. IMPRESSION: -Prominence/nodularity of bilateral john with perihilar/upper lobe predominant pulmonary nodularity. Constellation of findings could represent sarcoidosis. Other or underlying process difficult to exclude, and chest CT (preferably with contrast) could be considered for better characterization.ED POCUS TORRES Protocol [id number] 12:10:00ED POCUS TORRES Protocol Emergency (02/04/2018 12:10 PM) Specimen Performing Laboratory [facility] Narrative Rapid Ultrasound for Shock and Hypotension (SENECA) Indication: A focused ultrasound exam of the peritoneal space (including one of more the following areas: sub-phrenic, Morisons pouch, splenorenal, superior colic gutters, and retro-vesicular), pericardial space/IVC, pleural spaces, and/or aorta was performed to evaluate for internal blood loss, pericardial effusion, RV/LV systolic function, volume status, intrathoracic pathology, and/or large vessel pathology. The ultrasound was performed with the following indications, as noted in the H&P: undifferentiated dyspnea Identified structures: PUMP: heart (subxiphoid, parasternal long axis, parasternal short axis, apical 4-chamber and IVC (long axis)) TANK (intravascular):thoracic spaces Findings: Exam of the above structures revealed the following findings:: PUMP (heart & IVC) - CPT: 36356-34 (cardiac/IVC) Pericardiac effusion: Absent Pericardial tamponade: N/A Global LV function: Normal Right ventricular size: Normal Signs of RV strain: N/A IVC: Collapsed:>50% TANK (abdomen & thoracic spaces) - CPT: 74622-14 (abdomen) + 50613-98 (chest) Evaluation for free fluid in: Morison's pouch: Absent Spenorenal fossa: Absent Retrovesicular space: N/A Pleural space:Absent If pleural fluid is present, which side: Not applicable Evaluation of pneumothorax: Absent B-Lines (Comet tails): Absent Other findings: Limitations: None. Impression: PUMP No sonographic evidence of significant c ardiac dysfunction, No sonographic evidence of significant pericardial effusion and Normal RV TANK No pathologic free fluid "Normal thoracic evaluation, no pneumothorax or edema PIPES N/A Interpreted by: Yessi Jarvis MD Assistant Professor Of Chemistry After review of the [id number]-oi-[id number] ultrasound performed in this case I assess the overall image quality as: Image quality: Minimal criteria met for diagnosis,recognizable structures but with some technical or other flaws The accuracy of interpretation of images as presented reflects a true negative. This study doesmeet minimum criteria for credentialingand billing. DAINA Camacho 11 lead (Adult)2018-02-04 11:48:01 Test Item Value Reference Range Comments EKG Systolic BP (test code = EKG Systolic BP) EKG Diastolic BP (test code = EKG Diastolic BP) EKG Ventricular Rate (test code = EKG Ventricular 90 BPM Rate) EKG Atrial Rate (test code = EKG Atrial Rate) 90 BPM EKG P-R Interval (test code = EKG P-R Interval) 182 ms EKG QRS Duration (test code = EKG QRS Duration) 80 ms EKG Q-T Interval (test code = EKG Q-T Interval) 352 ms EKG QTC Calculation (test code = EKG QTC 430 ms Calculation) EKG Calculated P [place] (test code = EKG Calculated 47 degrees P [place]) EKG Calculated R Helena (test code = EKG Calculated 34 degrees R Hel[place]) EKG Calculated T Helena (test code = EKG Calculated 44 degrees T [place]) Troponin [id number] 11:42:00 Test Item Value Reference Range Comments Troponin I (test code = Troponin I) <0.034 <0.034 ng/mL [id number] 11:42:00 Test Item Value Reference Range Comments PRO-BNP (test code = PRO-BNP) 35.7 pg/mL 0.0- 177.0 pg/mL Comprehensive Metabolic [id number] 11:42:00 Test Item Value Reference Range Comments Sodium (test code = Sodium) 139 mmol/L 135- 145 mmol/L Potassium (test code = Potassium) 4.2 mmol/L 3.5- 5.0 mmol/ L Chloride (test code = Chloride) 102 mmol/L 98- 107 mmol/L CO2 (test code = CO2) 28.0 mmol/L 22.0- 30.0 mmol/L BUN (test code = BUN) 6 mg/dL 7- 21 mg/dL Creatinine (test code = Creatinine) 0.79 mg/dL 0.70- 1.30 m g/dL BUN/Creatinine Ratio (test code = 8 BUN/Creatinine Ratio) GFR MDRD Non Af Amer (test code = GFR MDRD >=60 >=60 mL/min/1.73m2 Non Af Amer) GFR MDRD Af Amer (test code = GFR MDRD Af >=60 >=60 m L/min/1.73m2 Amer) Anion Gap (test code = Anion Gap) 9 mmol/L 9- 15 mmol/L Glucose (test code = Glucose) 104 mg/dL 65- 179 mg/dL Calcium (test code = Calcium) 9.5 mg/dL 8.5- 10.2 mg/dL Albumin (test code = Albumin) 3.8 g/dL 3.5- 5.0 g/dL Total Protein (test code = Total Protein) 7.3 g/dL 6.6- 8 .0 g/dL Total Bilirubin (test code = Total Bilirubin) 0.6 mg/dL 0. 0- 1.2 mg/dL AST (test code = AST) 22 U/L 19- 55 U/L ALT (test code = ALT) 27 U/L 19- 72 U/L Alkaline Phosphatase (test code = Alkaline 82 U/L 38- 1 26 U/L Phosphatase) Lipase [id number] 11:42:00 Test Item Value Reference Range Comments Lipase (test code = Lipase) 99 U/L 44- 232 U/L Magnesium [id number] 11:42:00 Test Item Value Reference Range Comments Magnesium (test code = Magnesium) 1.6 mg/dL 1.6- 2.2 mg/dL [id number] 11:42:00 Test Item Value Reference Range Comments PT (test code = PT) 12.9 sec 10.3- 13.3 sec INR (test code = INR) 1.10 CBC w/ [id number] 11:42:00 Test Item Value Reference Range Comments WBC (test code = WBC) 7.8 10*9/L 4.5- 11.0 10*9/L RBC (test code = RBC) 4.61 10*12/L 4.50- 5.90 10*12/L HGB (test code = HGB) 13.0 g/dL 13.5- 17.5 g/dL HCT (test code = HCT) 38.9 % 41.0- 53.0 % MCV (test code = MCV) 84.5 fL 80.0- 100.0 fL MCH (test code = MCH) 28.3 pg 26.0- 34.0 pg MCHC (test code = MCHC) 33.4 g/dL 31.0- 37.0 g/dL RDW (test code = RDW) 12.3 % 12.0- 15.0 % MPV (test code = MPV) 7.8 fL 7.0- 10.0 fL Platelet (test code = Platelet) 232 10*9/L 150- 440 10*9/L Absolute Neutrophils (test code = Absolute 5.6 10*9/L 2.0- 7.5 10*9/L Neutrophils) Absolute Lymphocytes (test code = Absolute 1.0 10*9/L 1.5- 5.0 10*9/L Lymphocytes) Absolute Monocytes (test code = Absolute 0.5 10*9/L 0.2- 0. 8 10*9/L Monocytes) Absolute Eosinophils (test code = Absolute 0.6 10*9/L 0.0- 0.4 10*9/L Eosinophils) Absolute Basophils (test code = Absolute 0.0 10*9/L 0.0- 0. 1 10*9/L Basophils) Large Unstained Cells (test code = Large 3 % 0- 4 % Unstained Cells) CBC w/ [id number] 11:42:00CBC w/ Differential (02/04/2018 11:42 AM) Specimen Performing Laboratory Blood [facility] Narrative The following orders were created for panel order CBC w/ Differential. Procedure Abnormality Status --------- ------ CBC w/ Differential[[id number]] AbnormalFinal result Please view results for these tests on the individual orders. Assessments Condition Name Status Diagnosis Date Treating Clinici an Sarcoidosis of lung Active Other [facility] (current[facility] drug therapy Active Z71.2 Active Anemia, unspecified Active R73.03 Active Sarcoidosis, unspecified Active Obesity Not Otherwise Specified Active Special Screening Examination for Malignant Active Neoplasm of Prostate Special Screening Examination for Lipoid Active Disorders Encounter for screening for diseases of the Active blood and blood-forming organs and certain disorders involving the immune mechanism Obesity, unspecified Active Encounter for screening for diabetes Active mellitus Encounter for screening for lipoid disorders Active Encounter for screening for malignant Active neoplasm of prostate Encounter for screening for other suspected Active endocrine disorder Obesity Not Otherwise Specified Active Special Screening Examination for Malignant Active Neoplasm of Prostate Special Screening Examination for Lipoid Active Disorders Encounter for screening for diseases of the Active blood and blood-forming organs and certain disorders involving the immune mechanism Obesity, unspecified Active Encounter for screening for diabetes Active mellitus Encounter for screening for lipoid disorders Active Encounter for screening for malignant Active neoplasm of prostate Encounter for screening for other suspected Active endocrine disorder Hematuria, unspecified Active Hematuria, unspecified Active Frequency of micturition Active Induration penis plastica Active Effusion of Joint of Lower Leg Active Lung Involvement in Other Diseases Active Effusion of Joint of Lower Leg Active Lung Involvement in Other Diseases Active Osteoarthrosis Not Otherwise Specified of Active Lower Leg Osteoarthrosis Not Otherwise Specified of Active Lower Leg Sarcoidosis Active Esophageal Reflux Active Monitor Meds Active Sarcoidosis Active Esophageal Reflux Active Monitor Meds Active Encounters Start End Encounter Admission Attending Care Care Encounter ID Date/Time Date/Time Type Type Clinicians Facility Department 2018-02-05 [facility] [id number] 11:06:38 [id number] 2018-11-26 2018-11-26 Outpatient NATHAN Kaufman [id number] 00:00:00 00:00:00 [facility] 2018-11-17 2018-11-17 Outpatient NATHAN Kaufman [id number] 00:00:00 00:00:00 [facility] 2018-07-12 2018-07-12 Out[facility] [id number] 00:00:00 00:00:00 [id number] 2018-06-24 2018-06-24 Outpatient [facility] [id number] 00:00:00 23:59:00 [id number] 2018-04-08 2018-04-08 Outpatient [facility] [id number] 00:00:00 00:00:00 [id number] 2018-04-05 2018-04-05 R [facility] [id number] 13:54:42 23:59:00 [id number] 2018-04-05 2018-04-05 Outpatient [facility] [id number] 13:03:05 14:43:06 [id number] 2018-04-05 2018-04-05 Outpatient [facility] [id number] 13:03:05 14:43:06 2018-04-05 2018-04-05 Outpatient [facility] [id number] 00:00:00 00:00:00 [id number] 2018-04-05 2018-04-05 R [facility] [id number] 00:00:00 00:00:00 [id number] 2018-03-29 2018-03-29 Outpatient [facility] [id number] 00:00:00 00:00:00 2018-03-15 2018-03-15 Outpatient [facility] [id number] 14:04:38 23:59:00 2018-03-15 2018-03-15 Out[facility] [id number] 14:05:45 15:55:14 [id number] 2018-03-15 2018-03-15 Outpatient [facility] [id number] 14:05:45 15:55:14 2018-03-15 2018-03-15 Outpatient EL TABATHA, [facility] [id number] 14:04:38 14:04:38 EBEN [id number] 2018-03-15 2018-03-15 Outpatient [facility] [id number] 00:00:00 00:00:00 [id number] 2018-03-15 2018-03-15 Outpatient [facility] [id number] 00:00:00 00:00:00 [id number] 2018-02-04 2018-02-06 B ER WARDROP, [facility] [id number] 11:08:43 19:01:00 KENAN [id number] 2018-02-04 2018-02-06 Inpatient [facility] [id number] 11:08:43 19:01:00 2018-02-06 2018-02-06 B [facility] [id number] 02:47:25 02:47:25 [id number] 2018-02-05 2018-02-05 B [facility] [id number] 17:22:50 17:22:50 [id number] 2018-02-04 2018-02-04 Emergency [facility] [id number] 12:09:19 23:59:00 [id number] 2018-02-04 2018-02-04 Emergency [facility] [id number] 13:05:52 13:05:52 [id number] 2018-02-04 2018-02-04 Emergency ER [facility] [id number] 10:57:00 10:57:00 [id number] Payers Payer Name Policy Type Policy Number Effective Date Expiration D ate [employer] [id number] 00:00:0 0 Plan of Treatment Planned Activity Planned Date Details Comments Future Scheduled Test [code = ] Future Scheduled Test [code = ] Future Scheduled Test [code = ] Future Scheduled Test [code = ] Future Scheduled Test [code = ] Future Scheduled Test [code = ] Future Scheduled Test [code = ] Future Scheduled Test [code = ] Future Scheduled Test [code = ] Future Scheduled Test [code = ] Future Scheduled Test [code = ] Future Scheduled Test [code = ] Future Scheduled Test [code = ] Future Scheduled Test [code = ] Future Scheduled Test [code = ] Future Scheduled Test [code = ] Future Scheduled Test [code = ] Future Scheduled Test [code = ] Future Scheduled Test [code = ] Future Scheduled Test [code = ] Future Scheduled Test [code = ] Future Scheduled Test [code = ] Future Scheduled Test [code = ] Future Scheduled Test [code = ] Future Scheduled Test [code = ] Future Scheduled Test [code = ] Social History Social Habit Start Date Stop Date Comments Sex Assigned At Alcohol intake Tobacco smoking status [facility] 2018-03-15 00:00:00 2018-03-15 00:00 :00 Vital Signs Vital Name Observation Time Observation Value Comments SYSTOLIC BLOOD PRESSURE 2018-04-05 13:14:00 149 mm[Hg] DIASTOLIC BLOOD PRESSURE 2018-04-05 13:14:00 88 mm[Hg] HEART RATE 2018-04-05 13:14:00 88 /min WEIGHT 2018-04-05 13:14:00 93.622 kg HEIGHT 2018-03-15 14:36:00 173.4 cm WEIGHT 2018-03-15 14:36:00 93.396 kg SYSTOLIC BLOOD PRESSURE 2018-02-06 13:05:00 129 mm[Hg] DIASTOLIC BLOOD PRESSURE 2018-02-06 13:05:00 68 mm[Hg] HEART RATE 2018-02-06 13:05:00 97 /min BODY TEMPERATURE 2018-02-06 13:05:00 36.5 Mirian RESPIRATORY RATE 2018-02-06 13:05:00 18 /min OXYGEN SATURATION 2018-02-06 13:05:00 95 % HEIGHT 2018-02-04 21:48:00 175.3 cm WEIGHT 2018-02-04 21:48:00 94.2 kg
== END 2020-08-16 02:18 | disposition short-term general hospital (02) ==
LOC: ER 19:46
DX: I63.9 Cerebral infarction, unspecified (principal); R47.01 Aphasia; G81.94 Hemiplegia, unspecified affecting left nondominant side; R29.718 NIHSS score 18; D64.9 Anemia, unspecified; Z79.82 Long term (current) use of aspirin; Z79.899 Other long term (current) drug therapy
CPT/HCPCS: 36415; 70450; 70496; 70498; 71045; 80053; 85025; 85610; 85730; 93005; 93010; 99285